=== PATIENT | male | born 1965 | race Caucasian/White ===

== ENCOUNTER 2019-10-10 00:39 | Inpatient (IN) ==
[2019-10-10] MEDS ORDERED: HEPARIN 5,000 UNIT/1 ML VIAL ONE ×2 (00:52→02:07)
[2019-10-10] MEDS ORDERED: ASPIRIN 325 MG TABLET ONE (00:52)
[2019-10-10] MEDS ORDERED: NITROGLYCERIN 2% OINT 1 INCH/GM PACK TOP ONE (00:53)
[2019-10-10] MEDS ORDERED: ONDANSETRON 4 MG/2 ML VIAL IV STA (00:53)
[2019-10-10] MEDS ORDERED: NITROGLYCERIN 2% OINT 1 INCH/GM PACK TOP STA (00:53)
[2019-10-10] MEDS ORDERED: ASPIRIN 325 MG TABLET PO STA (00:53)
[2019-10-10] MEDS ORDERED: MORPHINE 4 MG/1 ML VIAL IV STA (00:53)
[2019-10-10] MEDS ORDERED: EPTIFIBATIDE 20,000 MCG/10 ML VIAL ONE (00:53)
[2019-10-10] MEDS ORDERED: HEPARIN 1,000 UNIT/1 ML VIAL IV STA (00:57)
[2019-10-10] MEDS ORDERED: EPTIFIBATIDE 75 MG/100 ML BOTTLE IV SCH (01:00)
[2019-10-10] MEDS: EPTIFIBATIDE 20,000 MCG/10 ML VIAL IV SCH ×2 (01:05→14:20)
[2019-10-10 01:10] LABS: Basophils # 0.2 10*3/uL (0.0-0.2); Basophils % 1.6 % (0.0-0.8); Eosinophils # 0.3 10*3/uL (0.0-0.87); Eosinophils % 2.9 % (0.00-10.9); Hematocrit 51.9 VOL% (42.0-52.0); Hemoglobin 17.8 GM/DL (14.0-18.0); Immature Granulocytes % 1.4 %; Immature Granulocytes Absolute 0.13 #; Lymphocytes % 31.8 % (21.2-54.2); Mean Corpuscular HGB Conc 34.3 GM/DL (32-36); Mean Corpuscular Volume 97.6 FL (87-102); Mean Platelet Volume 10.6 FL (9.6-12.0); Monocytes % 8.7 % (1.7-12.7); Neutrophils % 53.6 % (38.7-73.9); Platelet Count 206 T/CUMM (130-400); Red Blood Count 5.32 MC/CUMM (3.8-5.5); Red Cell Distribution Width 11.7 % (9.3-17.3); White Blood Count 9.4 T/CUMM (4-12)
[2019-10-10 01:21] LABS: PT Patient Result 10.3 SECS (9.8-11.9); Partial Thromboplastin Time 24.2 SECS (23.9-33.8)
[2019-10-10] MEDS ORDERED: MIDAZOLAM 2 MG/2 ML VIAL ONE (01:26)
[2019-10-10] MEDS ORDERED: LIDOCAINE 1% 20 ML VIAL ONE (01:26)
[2019-10-10] MEDS ORDERED: fentaNYL 100 MCG/2 ML VIAL ONE (01:27)
[2019-10-10] MEDS ORDERED: EPTIFIBATIDE 75 MG/100 ML BOTTLE IV ONE (01:27)
[2019-10-10 01:30] LABS: Alanine Aminotransferase 37 U/L (16-61); Alkaline Phosphatase 125 U/L (45-117); Aspartate Amino Transferase 18 U/L (0-37); Bilirubin,Total < 0.39 MG/DL (0.2-1.0); Blood Urea Nitrogen 24 MG/DL (7-18); Calcium 9.1 MG/DL (8.5-10.1); Estimated Glom Filtration Rate 67 ML/MIN; Glucose 293 MG/DL (74-106); Osmolality,Calculated 284.1 MOS/KG (273-304); Total Protein 7.5 G/DL (6.4-8.3)
[2019-10-10] MEDS ORDERED: METOPROLOL TARTRATE 5 MG/5 ML VIAL IV ONE (01:52)
[2019-10-10] MEDS ORDERED: NIFEdipine 10 MG CAPSULE PO ONE (02:08)
[2019-10-10] MEDS ORDERED: NITROGLYCERIN DRIP 50 MG/250 ML BOTTLE IV ONE (02:16)
[2019-10-10] MEDS ORDERED: TICAGRELOR 90 MG TABLET ONE (02:22)
[2019-10-10] MEDS: SODIUM CHLORIDE 0.9% 1,000 ML IV SCH ×2 (02:56→18:02)
[2019-10-10] MEDS ORDERED: LACTULOSE 20 GM/30 ML UDCUP PO PRN (03:03)
[2019-10-10] MEDS ORDERED: MAGNESIUM SULF RIDER 2 GM in PREMIX 1 EACH IV PRN (03:03)
[2019-10-10] MEDS ORDERED: MAGNESIUM SULF RIDER 4 GM in PREMIX 1 EACH IV PRN (03:03)
[2019-10-10] MEDS ORDERED: fentaNYL 100 MCG/2 ML VIAL IV PRN (03:03)
[2019-10-10] MEDS ORDERED: ONDANSETRON 4 MG/2 ML VIAL IV PRN (03:03)
[2019-10-10] MEDS: carvediloL 6.25 MG TABLET PO SCH ×4 (04:59→21:07)
[2019-10-10] MEDS: PANTOPRAZOLE 40 MG TABLET PO SCH ×2 (04:59→18:12)
[2019-10-10 05:28] LABS: Risk Ratio 9.67; Thyroid Stimulating Hormone 1.48 uIU/ml (0.358-3.74); VLDL CHOLESTEROL 125.8 MG/DL
[2019-10-10 06:34] LABS: CKMB % 8.5 %
[2019-10-10 06:36] LABS: Troponin I 71.7 NG/ML (0.00-0.045)
[2019-10-10] MEDS: TICAGRELOR 90 MG TABLET PO SCH ×2 (08:04→21:06)
[2019-10-10] MEDS: ASPIRIN CHEW 81 MG TABLET PO SCH (08:04)
[2019-10-10] MEDS ORDERED: OXYMETAZOLINE 0.05% NASAL SPRAY 15 ML BOTTLE BOTH NARES PRN (08:50)
[2019-10-10] MEDS ORDERED: LORazepam 0.5 MG TABLET PO PRN (08:50)
[2019-10-10] MEDS ORDERED: GLUCAGON 1 MG VIAL IM PRN ×2 (08:52→14:07)
[2019-10-10] MEDS ORDERED: DEXTROSE 10% 250 ML BAG IV PRN (08:52)
[2019-10-10] MEDS: NICOTINE 21 MG/24 HR PATCH TRANSDERM SCH (09:02)
[2019-10-10] MEDS: FOLIC ACID 1 MG TABLET PO SCH ×2 (09:02→21:07)
[2019-10-10] MEDS: INSULIN REGULAR 100 UNIT/ML SUBCUT SCH ×3 (12:07→21:07)
[2019-10-10 13:13] LABS: Basophils # 0.1 10*3/uL (0.0-0.2); Basophils % 1.2 % (0.0-0.8); Eosinophils # 0.2 10*3/uL (0.0-0.87); Eosinophils % 1.7 % (0.00-10.9); Hematocrit 45.7 VOL% (42.0-52.0); Immature Granulocytes % 1.4 %; Immature Granulocytes Absolute 0.16 #; Lymphocytes # 1.9 10*3/uL (1.4-4.0); Lymphocytes % 16.7 % (21.2-54.2); Mean Corpuscular HGB Conc 33.9 GM/DL (32-36); Mean Corpuscular Volume 98.3 FL (87-102); Mean Platelet Volume 11.1 FL (9.6-12.0); Monocytes % 9.6 % (1.7-12.7); Neutrophils % 69.4 % (38.7-73.9); Platelet Count 187 T/CUMM (130-400); Red Blood Count 4.65 MC/CUMM (3.8-5.5); Red Cell Distribution Width 11.9 % (9.3-17.3); White Blood Count 11.3 T/CUMM (4-12)
[2019-10-10] MEDS ORDERED: hydrALAZINE 20 MG/1 ML VIAL IV PRN (13:13)
[2019-10-10] MEDS ORDERED: diphenhydrAMINE CAP 25 MG CAPSULE PO PRN (13:13)
[2019-10-10 13:22] LABS: Hemoglobin 15.5 GM/DL (14.0-18.0)
[2019-10-10 13:28] LABS: Albumin 3.4 G/DL (3.4-5.0); Bilirubin,Total 0.6 MG/DL (0.2-1.0); Calcium 8.7 MG/DL (8.5-10.1); Osmolality,Calculated 279.2 MOS/KG (273-304); Total Protein 6.5 G/DL (6.4-8.3)
[2019-10-10 13:54] LABS: CKMB % 9.2 %
[2019-10-10 13:55] LABS: Troponin I 64.7 NG/ML (0.00-0.045)
[2019-10-10] MEDS ORDERED: DEXTROSE 50% 25 GM/50 ML VIAL IV PRN (14:07)
[2019-10-10] MEDS: buPROPion 75 MG TABLET PO SCH ×2 (17:07→21:06)
[2019-10-10 19:39] LABS: CKMB % 7.9 %
[2019-10-10 19:51] LABS: Troponin I 42.2 NG/ML (0.00-0.045)
[2019-10-10] MEDS: ROSUVASTATIN 20 MG TABLET PO SCH (21:06)
[2019-10-11] MEDS: carvediloL 6.25 MG TABLET PO SCH (04:06)
[2019-10-11 07:09] LABS: Basophils # 0.1 10*3/uL (0.0-0.2); Basophils % 1.3 % (0.0-0.8); Eosinophils # 0.3 10*3/uL (0.0-0.87); Eosinophils % 2.6 % (0.00-10.9); Hemoglobin 15.2 GM/DL (14.0-18.0); Immature Granulocytes % 0.7 %; Immature Granulocytes Absolute 0.07 #; Lymphocytes % 21.1 % (21.2-54.2); Mean Corpuscular HGB Conc 33.8 GM/DL (32-36); Mean Corpuscular Volume 96.6 FL (87-102); Mean Platelet Volume 10.9 FL (9.6-12.0); Monocytes % 11.3 % (1.7-12.7); Platelet Count 157 T/CUMM (130-400); Red Blood Count 4.66 MC/CUMM (3.8-5.5); Red Cell Distribution Width 11.8 % (9.3-17.3); White Blood Count 9.6 T/CUMM (4-12)
[2019-10-11] MEDS: INSULIN REGULAR 100 UNIT/ML SUBCUT SCH ×4 (08:35→20:26)
[2019-10-11] MEDS: buPROPion 75 MG TABLET PO SCH ×2 (08:36→20:26)
[2019-10-11] MEDS: ASPIRIN CHEW 81 MG TABLET PO SCH (08:36)
[2019-10-11] MEDS: TICAGRELOR 90 MG TABLET PO SCH ×2 (08:36→20:26)
[2019-10-11] MEDS: carvediloL 12.5 MG TABLET PO SCH ×2 (08:37→20:26)
[2019-10-11 08:44] LABS: Calcium 8.6 MG/DL (8.5-10.1); Osmolality,Calculated 282.8 MOS/KG (273-304)
[2019-10-11] MEDS: LOSARTAN 25 MG TABLET PO SCH (08:47)
[2019-10-11] MEDS: NICOTINE 21 MG/24 HR PATCH TRANSDERM SCH (09:13)
[2019-10-11] MEDS: FOLIC ACID 1 MG TABLET PO SCH ×2 (09:13→20:26)
[2019-10-11] MEDS: metFORMIN 500 MG TABLET PO SCH (17:54)
[2019-10-11] MEDS: PANTOPRAZOLE 40 MG TABLET PO SCH (17:54)
[2019-10-11] MEDS: ROSUVASTATIN 20 MG TABLET PO SCH (20:26)
[2019-10-11] MEDS ORDERED: OMEGA 3 ACID ETHYL ESTERS 1 GM CAPSULE PO SCH (21:00)
[2019-10-12 06:42] LABS: Basophils # 0.1 10*3/uL (0.0-0.2); Basophils % 1.3 % (0.0-0.8); Eosinophils # 0.4 10*3/uL (0.0-0.87); Eosinophils % 4.4 % (0.00-10.9); Hematocrit 45.1 VOL% (42.0-52.0); Hemoglobin 15.2 GM/DL (14.0-18.0); Immature Granulocytes % 1.1 %; Lymphocytes # 1.7 10*3/uL (1.4-4.0); Lymphocytes % 18.5 % (21.2-54.2); Mean Corpuscular HGB Conc 33.7 GM/DL (32-36); Mean Corpuscular Volume 98.3 FL (87-102); Mean Platelet Volume 10.8 FL (9.6-12.0); Monocytes % 11.3 % (1.7-12.7); Neutrophils % 63.4 % (38.7-73.9); Platelet Count 162 T/CUMM (130-400); Red Blood Count 4.59 MC/CUMM (3.8-5.5); Red Cell Distribution Width 11.5 % (9.3-17.3); White Blood Count 9.2 T/CUMM (4-12)
[2019-10-12 07:14] LABS: Calcium 8.9 MG/DL (8.5-10.1); Osmolality,Calculated 277.1 MOS/KG (273-304)
[2019-10-12 07:48] VITALS: BP 140/72
[2019-10-12] MEDS: INSULIN REGULAR 100 UNIT/ML SUBCUT SCH (07:50)
[2019-10-12] MEDS: metFORMIN 500 MG TABLET PO SCH (07:57)
[2019-10-12] MEDS: buPROPion 75 MG TABLET PO SCH (08:00)
[2019-10-12] MEDS: TICAGRELOR 90 MG TABLET PO SCH (08:00)
[2019-10-12] MEDS: NICOTINE 21 MG/24 HR PATCH TRANSDERM SCH (08:00)
[2019-10-12] MEDS: ASPIRIN CHEW 81 MG TABLET PO SCH (08:00)
[2019-10-12] MEDS: carvediloL 12.5 MG TABLET PO SCH (08:00)
[2019-10-12] MEDS: FOLIC ACID 1 MG TABLET PO SCH (08:00)
[2019-10-12] MEDS: LOSARTAN 25 MG TABLET PO SCH (08:00)
[2019-10-12] MEDS ORDERED: buPROPion 75 MG TABLET PO SCH (09:00)
== END 2019-10-12 10:17 | disposition home or self-care (01) | DRG 247 ==
LOC: SUPCPDRO → N.ED 00:39 → N.CVR 01:28 → N.EDINP 02:01 → N.CVR 02:39 → N.TELEN 09:32
PROVIDERS: ADMIT Internal Medicine Cardiovascular Disease; ATTEND Internal Medicine Cardiovascular Disease
PROC: CLCCHCL (ICD-10-PCS; 2019-10-10 01:45)

== ENCOUNTER 2020-10-10 14:00 | Inpatient (IN) ==
[2020-10-10] MEDS ORDERED: HEPARIN 5,000 UNIT/1 ML VIAL ONE ×2 (14:19→15:02)
[2020-10-10] MEDS ORDERED: ASPIRIN EC 81 MG TABLET PO ONE (14:19)
[2020-10-10] MEDS ORDERED: TICAGRELOR 90 MG TABLET PO STA (14:20)
[2020-10-10] MEDS ORDERED: ASPIRIN CHEW 81 MG TABLET PO ONE (14:20)
[2020-10-10] MEDS ORDERED: LIDOCAINE 1% 20 ML VIAL ONE (14:30)
[2020-10-10] MEDS ORDERED: fentaNYL 100 MCG/2 ML VIAL ONE (14:34)
[2020-10-10] MEDS ORDERED: MIDAZOLAM 2 MG/2 ML VIAL ONE (14:34)
[2020-10-10 14:35] LABS: Basophils # 0.1 10*3/uL (0.0-0.2); Basophils % 0.6 % (0.0-0.8); Eosinophils # 0.1 10*3/uL (0.0-0.87); Eosinophils % 0.5 % (0.00-10.9); Hematocrit 47.4 VOL% (42.0-52.0); Hemoglobin 16.5 GM/DL (14.0-18.0); Immature Granulocytes % 0.8 %; Immature Granulocytes Absolute 0.15 #; Lymphocytes % 10.1 % (21.2-54.2); Mean Corpuscular HGB Conc 34.8 GM/DL (32-36); Mean Corpuscular Volume 99.2 FL (87-102); Mean Platelet Volume 10.1 FL (9.6-12.0); Monocytes % 12.7 % (1.7-12.7); Neutrophils % 75.3 % (38.7-73.9); Platelet Count 228 T/CUMM (130-400); Red Blood Count 4.78 MC/CUMM (3.8-5.5); Red Cell Distribution Width 11.7 % (9.3-17.3); White Blood Count 19.5 T/CUMM (4-12)
[2020-10-10] MEDS ORDERED: hydrALAZINE 20 MG/1 ML VIAL IV PRN (14:47)
[2020-10-10] MEDS ORDERED: NICOTINE 21 MG/24 HR PATCH TRANSDERM PRN (14:47)
[2020-10-10] MEDS ORDERED: DOCUSATE SODIUM 100 MG CAPSULE PO PRN (14:47)
[2020-10-10] MEDS ORDERED: MAGNESIUM SULF RIDER 2 GM/50 ML PREMIX IV PRN ×2 (14:47→16:25)
[2020-10-10] MEDS ORDERED: MAGNESIUM SULF RIDER 4 GM/100 ML PREMIX IV PRN ×2 (14:47→16:25)
[2020-10-10] MEDS ORDERED: ASPIRIN CHEW 81 MG TABLET PO STA (14:47)
[2020-10-10] MEDS ORDERED: POTASSIUM CHLORIDE 20 MEQ TABLET PO PRN (14:47)
[2020-10-10] MEDS ORDERED: HEPARIN 1,000 UNIT/1 ML VIAL IV STA (14:47)
[2020-10-10] MEDS ORDERED: ZALEPLON 5 MG CAPSULE PO PRN (14:47)
[2020-10-10] MEDS ORDERED: diphenhydrAMINE CAP 25 MG CAPSULE PO PRN (14:47)
[2020-10-10] MEDS ORDERED: PROMETHAZINE 25 MG TABLET PO PRN (14:47)
[2020-10-10] MEDS ORDERED: guaiFENesin/DM ER 600-30 MG TABLET PO PRN (14:47)
[2020-10-10] MEDS ORDERED: ONDANSETRON 4 MG/2 ML VIAL IV PRN (14:47)
[2020-10-10] MEDS ORDERED: ACETAMINOPHEN 325 MG TABLET PO PRN (14:47)
[2020-10-10] MEDS ORDERED: ALUMINUM/MAGNES/SIMETH MAX STR 30 ML UDCUP PO PRN (14:47)
[2020-10-10] MEDS ORDERED: MORPHINE 4 MG/1 ML VIAL IV PRN (14:47)
[2020-10-10 14:53] LABS: Albumin 3.8 G/DL (3.4-5.0); Calcium 9.4 MG/DL (8.5-10.1); Osmolality,Calculated 275.1 MOS/KG (273-304); Potassium 4.1 MMOL/L (3.5-5.1); Total Protein 7.1 G/DL (6.4-8.2)
[2020-10-10] MEDS ORDERED: chlordiazePOXIDE 25 MG CAPSULE PO PRN (14:54)
[2020-10-10] MEDS ORDERED: SODIUM CHLORIDE 0.9% 1,000 ML IV SCH (15:00)
[2020-10-10] MEDS ORDERED: TIROFIBAN 5,000 MCG/100 ML PREMIX IV ONE (15:04)
[2020-10-10] MEDS ORDERED: NITROGLYCERIN DRIP 50 MG/250 ML BOTTLE IV ONE (15:31)
[2020-10-10] MEDS ORDERED: TICAGRELOR 90 MG TABLET ONE (15:37)
[2020-10-10] MEDS: TIROFIBAN 5,000 MCG/100 ML PREMIX IV SCH ×2 (16:07→21:51)
[2020-10-10 16:20] LABS: Folate 10.4 NG/ML (5.38-24.0)
[2020-10-10] MEDS ORDERED: KETOROLAC 30 MG/1 ML VIAL IV ONE (16:35)
[2020-10-10] MEDS: PANTOPRAZOLE 40 MG TABLET PO SCH (17:03)
[2020-10-10 18:45] LABS: CKMB % 4.8 %; Risk Ratio 3.42
[2020-10-10 18:48] LABS: Troponin I 32.2 NG/ML (0.00-0.045)
[2020-10-10] MEDS: INSULIN LISPRO 100 UNIT/ML SUBCUT SCH ×2 (19:25→20:29)
[2020-10-10 20:22] LABS: Barbiturates Screen,Urine Negative (Negative); Benzodiazepines Screen,Urine Positive (Negative); Cannabinoid Screen,Urine Negative (Negative); Opiate Screen,Urine Negative (Negative); Phencyclidine Screen,Urine Negative (Negative)
[2020-10-10] MEDS: OMEGA 3 ACID ETHYL ESTERS 1 GM CAPSULE PO SCH (20:28)
[2020-10-10] MEDS: carvediloL 6.25 MG TABLET PO SCH (20:29)
[2020-10-10] MEDS: ROSUVASTATIN 20 MG TABLET PO SCH (20:29)
[2020-10-10] MEDS: TICAGRELOR 90 MG TABLET PO SCH (20:35)
[2020-10-11 01:38] LABS: Basophils # 0.1 10*3/uL (0.0-0.2); Basophils % 0.8 % (0.0-0.8); Eosinophils # 0.1 10*3/uL (0.0-0.87); Eosinophils % 0.4 % (0.00-10.9); Hemoglobin 14.5 GM/DL (14.0-18.0); Immature Granulocytes % 0.6 %; Immature Granulocytes Absolute 0.09 #; Lymphocytes % 14.2 % (21.2-54.2); Mean Corpuscular HGB Conc 34.5 GM/DL (32-36); Mean Corpuscular Volume 100.2 FL (87-102); Mean Platelet Volume 10.5 FL (9.6-12.0); Monocytes % 14.5 % (1.7-12.7); Neutrophils % 69.5 % (38.7-73.9); Platelet Count 188 T/CUMM (130-400); Red Blood Count 4.19 MC/CUMM (3.8-5.5); Red Cell Distribution Width 11.7 % (9.3-17.3); White Blood Count 13.9 T/CUMM (4-12)
[2020-10-11 01:51] LABS: Albumin 2.8 G/DL (3.4-5.0); CKMB % 2.9 %; Calcium 8.6 MG/DL (8.5-10.1); Osmolality,Calculated 272.1 MOS/KG (273-304); Potassium 3.7 MMOL/L (3.5-5.1); Total Protein 6.2 G/DL (6.4-8.2)
[2020-10-11 01:53] LABS: Troponin I 24.3 NG/ML (0.00-0.045)
[2020-10-11] MEDS: TIROFIBAN 5,000 MCG/100 ML PREMIX IV SCH (04:34)
[2020-10-11] MEDS: INSULIN LISPRO 100 UNIT/ML SUBCUT SCH ×4 (08:15→21:56)
[2020-10-11] MEDS: carvediloL 6.25 MG TABLET PO SCH (08:16)
[2020-10-11] MEDS: ASPIRIN CHEW 81 MG TABLET PO SCH (08:16)
[2020-10-11] MEDS: FOLIC ACID 1 MG TABLET PO SCH (08:16)
[2020-10-11] MEDS: THIAMINE 100 MG TABLET PO SCH (08:16)
[2020-10-11] MEDS: TICAGRELOR 90 MG TABLET PO SCH ×2 (08:16→21:48)
[2020-10-11] MEDS: PANTOPRAZOLE 40 MG TABLET PO SCH (08:20)
[2020-10-11] MEDS ORDERED: PANTOPRAZOLE 40 MG TABLET PO SCH (09:00)
[2020-10-11 09:31] LABS: CKMB % 2.6 %; Troponin I 14.6 NG/ML (0.00-0.045)
[2020-10-11] MEDS ORDERED: carvediloL 6.25 MG TABLET PO ONE (11:44)
[2020-10-11] MEDS: GABAPENTIN 100 MG CAPSULE PO SCH ×2 (15:21→21:48)
[2020-10-11] MEDS: ROSUVASTATIN 20 MG TABLET PO SCH (21:48)
[2020-10-11] MEDS: carvediloL 12.5 MG TABLET PO SCH (21:48)
[2020-10-11] MEDS: OMEGA 3 ACID ETHYL ESTERS 1 GM CAPSULE PO SCH (21:48)
[2020-10-11] MEDS: buPROPion 75 MG TABLET PO SCH (21:57)
[2020-10-12 06:16] LABS: Albumin 2.5 G/DL (3.4-5.0); Bilirubin,Total 0.8 MG/DL (0.2-1.0); Calcium 8.8 MG/DL (8.5-10.1); Potassium 3.8 MMOL/L (3.5-5.1); Total Protein 6.5 G/DL (6.4-8.2)
[2020-10-12] MEDS: GABAPENTIN 100 MG CAPSULE PO SCH (08:10)
[2020-10-12] MEDS: carvediloL 12.5 MG TABLET PO SCH (08:10)
[2020-10-12] MEDS: ASPIRIN CHEW 81 MG TABLET PO SCH (08:10)
[2020-10-12] MEDS: THIAMINE 100 MG TABLET PO SCH (08:10)
[2020-10-12] MEDS: buPROPion 75 MG TABLET PO SCH (08:10)
[2020-10-12] MEDS: TICAGRELOR 90 MG TABLET PO SCH (08:11)
[2020-10-12] MEDS: FOLIC ACID 1 MG TABLET PO SCH (08:11)
[2020-10-12] MEDS: PANTOPRAZOLE 40 MG TABLET PO SCH (08:11)
[2020-10-12] MEDS ORDERED: carvediloL 12.5 MG TABLET PO ONE ×2 (08:23→08:32)
[2020-10-12 08:25] VITALS: BP 107/74
[2020-10-12] MEDS: INSULIN LISPRO 100 UNIT/ML SUBCUT SCH (08:28)
[2020-10-12] MEDS ORDERED: ASCORBIC ACID 500 MG TABLET PO SCH (09:00)
[2020-10-12] MEDS ORDERED: carvediloL 25 MG TABLET PO SCH (17:00)
[2020-10-13] MEDS ORDERED: carvediloL 12.5 MG TABLET PO SCH (09:00)
[2020-10-13] MEDS ORDERED: carvediloL 25 MG TABLET PO SCH (09:00)
== END 2020-10-12 10:25 | disposition home or self-care (01) | DRG 247 ==
LOC: N.ED 14:00 → N.EDINP 14:34 → N.ICU 17:36
PROVIDERS: ADMIT Internal Medicine Cardiovascular Disease; ATTEND Internal Medicine Cardiovascular Disease
PROC: CLCCHCL (ICD-10-PCS; 2020-10-10 15:15)

== ENCOUNTER 2021-02-18 10:50 | Inpatient (IN) ==
[2021-02-20] MEDS ORDERED: GLUCAGON 1 MG VIAL IM PRN ×2 (09:29)
[2021-02-20] MEDS ORDERED: DEXTROSE 50% 25 GM/50 ML VIAL IV PRN ×2 (09:29)
[2021-02-20] MEDS ORDERED: SODIUM CHLORIDE 0.9% 1,000 ML IV SCH (09:30)
[2021-02-20 10:10] LABS: Basophils # 0.1 10*3/uL (0.0-0.2); Basophils % 1.2 % (0.0-0.8); Eosinophils # 0.4 10*3/uL (0.0-0.87); Eosinophils % 4.2 % (0.00-10.9); Hematocrit 47.3 VOL% (42.0-52.0); Hemoglobin 16.2 GM/DL (14.0-18.0); Immature Granulocytes % 0.6 %; Immature Granulocytes Absolute 0.05 #; Lymphocytes # 2.3 10*3/uL (1.4-4.0); Lymphocytes % 26.7 % (21.2-54.2); Mean Corpuscular HGB Conc 34.2 GM/DL (32-36); Mean Corpuscular Volume 97.7 FL (87-102); Mean Platelet Volume 10.5 FL (9.6-12.0); Monocytes % 9.4 % (1.7-12.7); Neutrophils % 57.9 % (38.7-73.9); Platelet Count 171 T/CUMM (130-400); Red Blood Count 4.84 MC/CUMM (3.8-5.5); Red Cell Distribution Width 12.8 % (9.3-17.3); White Blood Count 8.6 T/CUMM (4-12)
[2021-02-20] MEDS ORDERED: NITROGLYCERIN SL 0.4 MG TABLET SL PRN (10:22)
[2021-02-20 10:23] LABS: ABG Base Excess 0.6 MMOL/L (-2.5-2.5); ABG HCO3 23.3 MMOL/L (20-26); ABG PCO2 32.8 MM HG (35-48); ABG PO2 80.2 MM HG (80-95); ABG TCO2 24.3 MMOL/L (23-27)
[2021-02-20] MEDS ORDERED: CLORAZEPATE 3.75 MG TABLET PO PRN (10:24)
[2021-02-20 10:31] LABS: Alanine Aminotransferase 17 U/L (16-61); Albumin 3.7 G/DL (3.4-5.0); Alkaline Phosphatase 96 U/L (45-117); Aspartate Amino Transferase 20 U/L (0-37); Bilirubin,Total < 0.39 MG/DL (0.20-1.00); Blood Urea Nitrogen 22 MG/DL (7-18); Calcium 8.9 MG/DL (8.5-10.1); Carbon Dioxide 24 MMOL/L (21-32); Estimated Glom Filtration Rate 86 ML/MIN; Glucose 201 MG/DL (74-106); Potassium 3.5 MMOL/L (3.5-5.1); Sodium 136 MMOL/L (136-145); Total Protein 7.3 G/DL (6.4-8.2)
[2021-02-20] MEDS: CHLORHEXIDINE 0.12% ORAL RINSE 60 ML BOTTLE SWISH/SPIT SCH ×2 (12:00→20:33)
[2021-02-20] MEDS: ALPRAZolam 0.25 MG TABLET PO PRN ×2 (13:24→16:11)
[2021-02-20] MEDS: INSULIN REGULAR 100 UNIT/ML SUBCUT SCH ×3 (13:30→20:26)
[2021-02-20] MEDS ORDERED: ASCORBIC ACID 500 MG TABLET PO ONE (13:43)
[2021-02-20] MEDS ORDERED: DIAZEPAM 5 MG TABLET PO ONE (14:12)
[2021-02-20] MEDS ORDERED: PANTOPRAZOLE 40 MG TABLET PO ONE (14:12)
[2021-02-20] MEDS: CHLORHEXIDINE 4% SOLN 118 ML BOTTLE TOP SCH ×2 (15:00→23:49)
[2021-02-20] MEDS: chlordiazePOXIDE 10 MG CAPSULE PO SCH ×2 (15:27→20:26)
[2021-02-20] MEDS: GABAPENTIN 100 MG CAPSULE PO SCH ×2 (15:27→20:26)
[2021-02-20] MEDS: HYDROmorphone 2 MG/1 ML VIAL IV PRN ×2 (16:39→21:26)
[2021-02-20] MEDS: ASCORBIC ACID 500 MG TABLET PO SCH (20:26)
[2021-02-20] MEDS: THIAMINE 100 MG TABLET PO SCH (20:26)
[2021-02-20] MEDS ORDERED: FOLIC ACID 1 MG TABLET PO SCH (21:00)
[2021-02-21] MEDS: CHLORHEXIDINE 4% SOLN 118 ML BOTTLE TOP SCH (04:43)
[2021-02-21] MEDS ORDERED: SODIUM CHLORIDE 0.9% 1,000 ML IV SCH (05:00)
[2021-02-21] MEDS ORDERED: VANCOMYCIN INJ 1,000 MG in SODIUM CHLORIDE 0.9% 250 ML IV ONE (05:00)
[2021-02-21] MEDS ORDERED: PANTOPRAZOLE 40 MG TABLET PO ONE (05:00)
[2021-02-21] MEDS ORDERED: DIAZEPAM 5 MG TABLET PO ONE (05:00)
[2021-02-21] MEDS ORDERED: VANCOMYCIN 500 MG VIAL ONE (05:30)
[2021-02-21] MEDS ORDERED: VANCOMYCIN 1,000 MG VIAL ONE (05:30)
[2021-02-21] MEDS ORDERED: PAPAVERINE 60 MG/2 ML VIAL ONE (05:30)
[2021-02-21] MEDS ORDERED: CALCIUM CHLORIDE 1,000 MG/10 ML VIAL IV ONE ×2 (05:47→10:44)
[2021-02-21] MEDS ORDERED: LACTATED RINGERS 1,000 ML IV ONE (05:47)
[2021-02-21] MEDS ORDERED: VECURONIUM 10 MG VIAL IV ONE (05:47)
[2021-02-21] MEDS ORDERED: SODIUM CHLORIDE 0.9% 250 ML IV ONE (05:47)
[2021-02-21] MEDS ORDERED: MIDAZOLAM 10 MG/2 ML VIAL ONE ×4 (05:47→05:48)
[2021-02-21] MEDS ORDERED: ETOMIDATE 40 MG/20 ML VIAL IV ONE (05:47)
[2021-02-21] MEDS ORDERED: SODIUM CHLORIDE 0.9% 100 ML IV ONE (05:47)
[2021-02-21] MEDS ORDERED: SEVOFLURANE 1 UNIT/15 MINUTE INH ONE (05:47)
[2021-02-21] MEDS ORDERED: SUFentanil 250 MCG/5 ML AMP ONE ×4 (05:48)
[2021-02-21] MEDS ORDERED: AMINOCAPROIC ACID 5,000 MG/20 ML VIAL ONE (06:04)
[2021-02-21] MEDS ORDERED: PHENYLEPHRINE DRIP 20 MG/250 ML PREMIX IV ONE (06:04)
[2021-02-21] MEDS ORDERED: NITROGLYCERIN DRIP 50 MG/250 ML BOTTLE IV ONE (06:04)
[2021-02-21] MEDS ORDERED: HEPARIN/NACL 0.9% 2 UNITS/ML 1,000 UNIT/500 ML BAG IV ONE (06:04)
[2021-02-21 07:33] LABS: ABG Base Excess 0.9 MMOL/L (-2.5-2.5); ABG HCO3 25.2 MMOL/L (20-26); ABG Oxygen Saturation 98.5 % (95-100); ABG PCO2 39.5 MM HG (35-48); ABG PH 7.423 (7.35-7.45); ABG TCO2 26.4 MMOL/L (23-27); Glucose Heart Surgery 172 MG/DL (74-106); Hemoglobin Heart Surgery 14.9 G/DL (14.0-18.0); Ionized Calcium Arterial 1.14 MMOL/L (1.21-1.46); PCO2 Patient Temp Arterial 39.5 MMHG; PH Patient Temp Arterial 7.423; Patient Temperature 37 CELCIUS; Potassium Heart/CVR 3.4 MMOL/L (3.5-5.1); Sodium Heart/CVR 138 MMOL/L (135-145)
[2021-02-21 08:07] LABS: Bacteria,Urine Occasional /HPF (Few); Bilirubin,Urine Negative (Negative); Blood, Urine Negative (Negative); Glucose,Urine (UA) >=500 mg/dL (Negative); Ketones,Urine 5 mg/dL (Negative); Mucus,Urine Occasional /LPF (Occasional); Nitrite,Urine Negative (Negative); Protein,Urine Negative; RBC,Urine <1 /HPF (0-4); Urine Appearance CLEAR (Clear); Urine Color Yellow (Yellow); Urine Specific Gravity 1.025 (1.001-1.035); Urine Urobilinogen < 2.0 EU/DL (0.2-1.0)
[2021-02-21] MEDS ORDERED: MINERAL OIL/PETROLATUM OPH OINT 3.5 GM TUBE ONE (08:37)
[2021-02-21] MEDS ORDERED: MULTIVITAMIN (CENTRUM) TABLET PO SCH (09:00)
[2021-02-21 09:12] LABS: Hematocrit Heart Surgery 34.3 PERCENT (42-52); Hemoglobin Heart Surgery 11.1 G/DL (14.0-18.0); PCO2 Patient Temp Venous 36.7 MM HG; PH Patient Temp Venous 7.452; PO2 Patient Temp Venous 42.8 MM HG; Potassium Heart/CVR 3.7 MMOL/L (3.5-5.1); VBG Base Excess 1.9 MEQ/L (0-4); VBG HCO3 25.8 MEQ/L (24-28); VBG Oxygen Saturation 83.2 %; VBG PCO2 40.5 MMHG (41-51); VBG PH 7.423; VBG PO2 49.2 MMHG (17-40); VBG Total CO2 23.7 MMOL/L
[2021-02-21] MEDS ORDERED: POTASSIUM CHLORIDE RIDER 20 MEQ/100 ML PREMIX IV ONE (09:16)
[2021-02-21] MEDS ORDERED: SODIUM BICARBONATE 50 MEQ/50 ML VIAL IV ONE ×2 (09:16→11:01)
[2021-02-21] MEDS ORDERED: EPINEPHrine 1 MG/10 ML SYRINGE ONE (09:17)
[2021-02-21] MEDS ORDERED: CALCIUM CHLORIDE 1,000 MG/10 ML SYRINGE IV ONE (09:17)
[2021-02-21 09:42] LABS: Hematocrit Heart Surgery 37.5 PERCENT (42-52); Hemoglobin Heart Surgery 12.2 G/DL (14.0-18.0); PH Patient Temp Venous 7.487; PO2 Patient Temp Venous 39.1 MM HG; Potassium Heart/CVR 3.8 MMOL/L (3.5-5.1); VBG Base Excess 2.1 MEQ/L (0-4); VBG Oxygen Saturation 84.1 %; VBG PCO2 38.2 MMHG (41-51); VBG PH 7.442; VBG PO2 48.1 MMHG (17-40); VBG Total CO2 23.1 MMOL/L
[2021-02-21 10:16] LABS: Hematocrit Heart Surgery 37.5 PERCENT (42-52); Hemoglobin Heart Surgery 12.2 G/DL (14.0-18.0); PCO2 Patient Temp Venous 35.5 MM HG; PH Patient Temp Venous 7.456; Potassium Heart/CVR 4.6 MMOL/L (3.5-5.1); VBG Base Excess 1.4 MEQ/L (0-4); VBG HCO3 25.3 MEQ/L (24-28); VBG Oxygen Saturation 79.8 %; VBG PCO2 39.1 MMHG (41-51); VBG PH 7.426; VBG PO2 44.8 MMHG (17-40); VBG Total CO2 22.8 MMOL/L
[2021-02-21] MEDS ORDERED: THROMBIN TOPICAL (RECOMBINANT) 5,000 UNIT VIAL TOP ONE (10:37)
[2021-02-21] MEDS: INSULIN REGULAR 100 UNIT/ML SUBCUT SCH ×2 (10:49→14:52)
[2021-02-21] MEDS: THIAMINE 100 MG TABLET PO SCH (10:50)
[2021-02-21] MEDS: CHLORHEXIDINE 0.12% ORAL RINSE 60 ML BOTTLE SWISH/SPIT SCH ×2 (10:50→20:59)
[2021-02-21] MEDS: ASCORBIC ACID 500 MG TABLET PO SCH (10:50)
[2021-02-21] MEDS: chlordiazePOXIDE 10 MG CAPSULE PO SCH (10:50)
[2021-02-21] MEDS: GABAPENTIN 100 MG CAPSULE PO SCH (10:50)
[2021-02-21] MEDS ORDERED: MAGNESIUM SULFATE 5 GM/10 ML VIAL IV ONE (11:00)
[2021-02-21] MEDS ORDERED: LIDOCAINE 2% 5 ML VIAL ONE ×2 (11:00→11:15)
[2021-02-21] MEDS ORDERED: PROTAMINE SULFATE 250 MG/25 ML VIAL IV ONE (11:00)
[2021-02-21] MEDS ORDERED: ALBUMIN 25% 25 GM/100 ML VIAL IV ONE (11:00)
[2021-02-21] MEDS ORDERED: methylPREDNISolone SOD SUC 1,000 MG/8 ML VIAL ONE (11:00)
[2021-02-21] MEDS ORDERED: HEPARIN 10,000 UNIT/10 ML VIAL ONE (11:00)
[2021-02-21] MEDS ORDERED: DEXTROSE 5% KCL 20 MEQ 20 MEQ/1,000 ML BAG IV ONE (11:00)
[2021-02-21] MEDS ORDERED: MANNITOL 100 GM/500 ML BAG IV ONE (11:00)
[2021-02-21] MEDS ORDERED: PROTAMINE SULFATE 50 MG/5 ML VIAL IV ONE ×3 (11:01→12:15)
[2021-02-21] MEDS ORDERED: FUROSEMIDE 20 MG/2 ML VIAL ONE (11:01)
[2021-02-21 11:06] LABS: ABG Base Excess 0.4 MMOL/L (-2.5-2.5); ABG HCO3 24.8 MMOL/L (20-26); ABG Oxygen Saturation 98.8 % (95-100); ABG PCO2 35.8 MM HG (35-48); ABG PH 7.437 (7.35-7.45); ABG TCO2 21.2 MMOL/L (23-27); Glucose Heart Surgery 270 MG/DL (74-106); Hematocrit Heart Surgery 37.8 PERCENT (42-52); Hemoglobin Heart Surgery 12.3 G/DL (14.0-18.0); Ionized Calcium Arterial 1.47 MMOL/L (1.21-1.46); PCO2 Patient Temp Arterial 35.8 MMHG; PH Patient Temp Arterial 7.437; Patient Temperature 37 CELCIUS; Potassium Heart/CVR 3.8 MMOL/L (3.5-5.1); Sodium Heart/CVR 141 MMOL/L (135-145)
[2021-02-21] MEDS ORDERED: AMIODARONE 150 MG/3 ML VIAL ONE (11:09)
[2021-02-21] MEDS ORDERED: PHENYLEPHRINE DRIP 40 MG/250 ML PREMIX IV ONE (11:48)
[2021-02-21] MEDS ORDERED: INSULIN REGULAR DRIP 100 ML IV SCH (12:24)
[2021-02-21] MEDS ORDERED: MAGNESIUM SULF RIDER 2 GM/50 ML PREMIX IV PRN (12:24)
[2021-02-21] MEDS ORDERED: VECURONIUM 10 MG VIAL IV PRN ×2 (12:24)
[2021-02-21] MEDS ORDERED: POTASSIUM CHLORIDE RIDER 10 MEQ/100 ML PREMIX IV PRN (12:24)
[2021-02-21] MEDS ORDERED: CHLORHEXIDINE 4% SOLN 118 ML BOTTLE TOP PRN (12:24)
[2021-02-21] MEDS ORDERED: ONDANSETRON 4 MG/2 ML VIAL IV PRN (12:24)
[2021-02-21] MEDS ORDERED: INSULIN REGULAR 100 UNIT/ML IV ONE (12:24)
[2021-02-21] MEDS ORDERED: ACETAMINOPHEN 650 MG SUPP RECTAL PRN (12:24)
[2021-02-21] MEDS ORDERED: SODIUM CHLORIDE 0.45% 1,000 ML IV SCH ×2 (12:24)
[2021-02-21] MEDS ORDERED: INSULIN REGULAR 100 UNIT/ML IV PRN (12:24)
[2021-02-21] MEDS ORDERED: MIDAZOLAM 2 MG/2 ML VIAL IV PRN (12:24)
[2021-02-21] MEDS ORDERED: DEXTROSE 50% 25 GM/50 ML VIAL IV PRN ×2 (12:24)
[2021-02-21] MEDS ORDERED: MIDAZOLAM 10 MG/2 ML VIAL IV PRN (12:24)
[2021-02-21] MEDS ORDERED: CALCIUM CHLORIDE 1,000 MG/10 ML SYRINGE IV PRN (12:24)
[2021-02-21] MEDS ORDERED: MAGNESIUM SULF RIDER 4 GM/100 ML PREMIX IV PRN (12:24)
[2021-02-21] MEDS ORDERED: NITROPRUSSIDE 100 MG in DEXTROSE 5% 250 ML IV PRN (12:24)
[2021-02-21] MEDS ORDERED: MORPHINE 10 MG/1 ML VIAL IV PRN (12:24)
[2021-02-21 12:27] LABS: ABG Base Excess -1.8 MMOL/L (-2.5-2.5); ABG HCO3 22.9 MMOL/L (20-26); ABG Oxygen Saturation 97.7 % (95-100); ABG PCO2 35.9 MM HG (35-48); ABG PH 7.403 (7.35-7.45); ABG TCO2 19.6 MMOL/L (23-27); Glucose Heart Surgery 252 MG/DL (74-106); Hematocrit Heart Surgery 39.5 PERCENT (42-52); Hemoglobin Heart Surgery 12.8 G/DL (14.0-18.0); Potassium Heart/CVR 3.9 MMOL/L (3.5-5.1)
[2021-02-21 12:29] LABS: Basophils # 0.1 10*3/uL (0.0-0.2); Basophils % 0.6 % (0.0-0.8); Eosinophils # 0.2 10*3/uL (0.0-0.87); Eosinophils % 1.6 % (0.00-10.9); Immature Granulocytes % 0.9 %; Lymphocytes # 1.7 10*3/uL (1.4-4.0); Lymphocytes % 15.6 % (21.2-54.2); Mean Corpuscular HGB Conc 34.1 GM/DL (32-36); Mean Corpuscular Volume 98.4 FL (87-102); Mean Platelet Volume 10.6 FL (9.6-12.0); Monocytes % 7.8 % (1.7-12.7); Neutrophils % 73.5 % (38.7-73.9); Platelet Count 157 T/CUMM (130-400); Red Cell Distribution Width 12.9 % (9.3-17.3); White Blood Count 10.8 T/CUMM (4-12)
[2021-02-21 12:31] LABS: Hemoglobin 12.6 GM/DL (14.0-18.0); Red Blood Count 3.76 MC/CUMM (3.8-5.5)
[2021-02-21 12:53] LABS: Albumin 3.6 G/DL (3.4-5.0); Bilirubin,Total 1.1 MG/DL (0.20-1.00); Calcium 9.7 MG/DL (8.5-10.1); Osmolality,Calculated 290.1 MOS/KG (273-304); Potassium 3.6 MMOL/L (3.5-5.1); Total Protein 6.4 G/DL (6.4-8.2)
[2021-02-21 12:54] LABS: INR 1.2; PT Patient Result 13.5 SECS (10.5-12.0); Partial Thromboplastin Time 26.8 SECS (23.9-33.8)
[2021-02-21 13:01] LABS: Band Neutrophils 10 % (0-10); Eosinophils 1 % (0-10); Lymphocytes 14 % (20-55); Segmented Neutrophils 71 % (50-85); Total Cells Counted 100
[2021-02-21 13:02] LABS: Anisocytosis Slight; Macrocytosis Slight; Platelet Estimate Adequate
[2021-02-21 13:06] LABS: CKMB % 6.1 %
[2021-02-21 13:09] LABS: ABG Base Excess 1.4 MMOL/L (-2.5-2.5); ABG HCO3 24.7 MMOL/L (20-26); ABG PH 7.466 (7.35-7.45); ABG PO2 107.9 MM HG (80-95); ABG TCO2 25.7 MMOL/L (23-27)
[2021-02-21 13:11] LABS: High Sensitive Troponin I* 29405.6 ng/L (0-78)
[2021-02-21] MEDS: POTASSIUM CHLORIDE RIDER 20 MEQ/100 ML PREMIX IV PRN ×3 (13:19→20:58)
[2021-02-21] MEDS: LACTATED RINGERS 250 ML IV PRN ×4 (13:20→21:05)
[2021-02-21] MEDS: PHENYLEPHRINE DRIP 40 MG/250 ML PREMIX IV PRN (13:20)
[2021-02-21] MEDS: methylPREDNISolone SOD SUC 40 MG/1 ML VIAL IV SCH ×2 (13:41→20:58)
[2021-02-21 15:11] LABS: ABG Base Excess -0.1 MMOL/L (-2.5-2.5); ABG HCO3 24.4 MMOL/L (20-26); ABG Oxygen Saturation 98.1 % (95-100); ABG PCO2 36.3 MM HG (35-48); ABG PH 7.426 (7.35-7.45); ABG TCO2 20.9 MMOL/L (23-27); Glucose Heart Surgery 188 MG/DL (74-106); Hematocrit Heart Surgery 39.3 PERCENT (42-52); Hemoglobin Heart Surgery 12.8 G/DL (14.0-18.0); Potassium Heart/CVR 3.7 MMOL/L (3.5-5.1)
[2021-02-21] MEDS: KETOROLAC 30 MG/1 ML VIAL IV SCH ×2 (15:44→21:04)
[2021-02-21] MEDS: ALBUMIN 5% 12.5 GM/250 ML VIAL IV PRN ×2 (17:18→21:20)
[2021-02-21 19:34] LABS: ABG HCO3 26.2 MMOL/L (20-26); ABG Oxygen Saturation 98.1 % (95-100); ABG PCO2 38.7 MM HG (35-48); ABG PH 7.437 (7.35-7.45); ABG TCO2 22.8 MMOL/L (23-27); Glucose Heart Surgery 123 MG/DL (74-106); Hematocrit Heart Surgery 39.5 PERCENT (42-52); Hemoglobin Heart Surgery 12.9 G/DL (14.0-18.0); Potassium Heart/CVR 3.4 MMOL/L (3.5-5.1)
[2021-02-21] MEDS ORDERED: FUROSEMIDE 40 MG/4 ML VIAL IV ONE (20:15)
[2021-02-21 20:21] LABS: CKMB % 5.6 %
[2021-02-21 20:27] LABS: High Sensitive Troponin I* 43465.4 ng/L (0-78)
[2021-02-21 21:11] LABS: ABG Base Excess 0.5 MMOL/L (-2.5-2.5); ABG HCO3 24.8 MMOL/L (20-26); ABG Oxygen Saturation 97.7 % (95-100); ABG PCO2 44.3 MM HG (35-48); ABG PH 7.376 (7.35-7.45); ABG TCO2 22.9 MMOL/L (23-27); Glucose Heart Surgery 140 MG/DL (74-106); Hematocrit Heart Surgery 38.4 PERCENT (42-52); Hemoglobin Heart Surgery 12.5 G/DL (14.0-18.0); Potassium Heart/CVR 3.8 MMOL/L (3.5-5.1)
[2021-02-21 22:16] LABS: ABG Base Excess 0.1 MMOL/L (-2.5-2.5); ABG HCO3 24.5 MMOL/L (20-26); ABG Oxygen Saturation 95.9 % (95-100); ABG PCO2 51.4 MM HG (35-48); ABG PH 7.327 (7.35-7.45); ABG TCO2 24.1 MMOL/L (23-27); Glucose Heart Surgery 150 MG/DL (74-106); Hematocrit Heart Surgery 36.6 PERCENT (42-52); Hemoglobin Heart Surgery 11.9 G/DL (14.0-18.0); Potassium Heart/CVR 3.8 MMOL/L (3.5-5.1)
[2021-02-21] MEDS ORDERED: VANCOMYCIN INJ 1,000 MG in SODIUM CHLORIDE 0.9% 250 ML IV SCH (23:30)
[2021-02-22 00:09] LABS: ABG Base Excess 2.4 MMOL/L (-2.5-2.5); ABG Oxygen Saturation 95.6 % (95-100); ABG PCO2 47.4 MM HG (35-48); ABG PH 7.389 (7.35-7.45); ABG PO2 87.6 MM HG (80-95); ABG TCO2 29.4 MMOL/L (23-27); Glucose Heart Surgery 132 MG/DL (74-106); Hemoglobin Heart Surgery 11.6 G/DL (14.0-18.0); Potassium Heart/CVR 3.7 MMOL/L (3.5-5.1)
[2021-02-22] MEDS: POTASSIUM CHLORIDE RIDER 20 MEQ/100 ML PREMIX IV PRN (00:18)
[2021-02-22 02:08] LABS: ABG Base Excess -0.6 MMOL/L (-2.5-2.5); ABG HCO3 23.9 MMOL/L (20-26); ABG Oxygen Saturation 95.6 % (95-100); ABG PCO2 44.2 MM HG (35-48); ABG PH 7.362 (7.35-7.45); ABG PO2 84.9 MM HG (80-95); ABG TCO2 22.2 MMOL/L (23-27); Glucose Heart Surgery 127 MG/DL (74-106); Hematocrit Heart Surgery 37.6 PERCENT (42-52); Hemoglobin Heart Surgery 12.2 G/DL (14.0-18.0); Potassium Heart/CVR 4.4 MMOL/L (3.5-5.1)
[2021-02-22] MEDS: PHENYLEPHRINE DRIP 40 MG/250 ML PREMIX IV PRN (02:36)
[2021-02-22 02:48] LABS: ABG Base Excess -0.1 MMOL/L (-2.5-2.5); ABG HCO3 24.3 MMOL/L (20-26); ABG Oxygen Saturation 93.8 % (95-100); ABG PCO2 51.9 MM HG (35-48); ABG PH 7.322 (7.35-7.45); ABG PO2 77.9 MM HG (80-95); Glucose Heart Surgery 129 MG/DL (74-106); Hematocrit Heart Surgery 37.9 PERCENT (42-52); Hemoglobin Heart Surgery 12.3 G/DL (14.0-18.0); Potassium Heart/CVR 4.3 MMOL/L (3.5-5.1)
[2021-02-22] MEDS: KETOROLAC 30 MG/1 ML VIAL IV SCH ×4 (03:22→16:30)
[2021-02-22 04:00] LABS: ABG Base Excess -0.9 MMOL/L (-2.5-2.5); ABG HCO3 23.6 MMOL/L (20-26); ABG Oxygen Saturation 95.4 % (95-100); ABG PCO2 48.4 MM HG (35-48); ABG PH 7.331 (7.35-7.45); ABG TCO2 22.8 MMOL/L (23-27); Glucose Heart Surgery 130 MG/DL (74-106); Hematocrit Heart Surgery 37.3 PERCENT (42-52); Hemoglobin Heart Surgery 12.1 G/DL (14.0-18.0); Potassium Heart/CVR 4.2 MMOL/L (3.5-5.1)
[2021-02-22 04:07] LABS: Basophils % 0.1 % (0.0-0.8); Hematocrit 36.4 VOL% (42.0-52.0); Hemoglobin 11.8 GM/DL (14.0-18.0); Immature Granulocytes % 0.7 %; Immature Granulocytes Absolute 0.11 #; Lymphocytes # 0.7 10*3/uL (1.4-4.0); Lymphocytes % 4.8 % (21.2-54.2); Mean Corpuscular HGB Conc 32.4 GM/DL (32-36); Mean Corpuscular Volume 103.1 FL (87-102); Monocytes % 6.6 % (1.7-12.7); Neutrophils % 87.8 % (38.7-73.9); Platelet Count 176 T/CUMM (130-400); Red Blood Count 3.53 MC/CUMM (3.8-5.5); Red Cell Distribution Width 13.2 % (9.3-17.3); White Blood Count 15.1 T/CUMM (4-12)
[2021-02-22] MEDS: methylPREDNISolone SOD SUC 40 MG/1 ML VIAL IV SCH ×3 (04:15→20:41)
[2021-02-22 04:25] LABS: Albumin 3.8 G/DL (3.4-5.0); Bilirubin,Direct 0.15 MG/DL (0.0-0.20); Bilirubin,Total 0.5 MG/DL (0.20-1.00); Calcium 8.7 MG/DL (8.5-10.1); Osmolality,Calculated 292.6 MOS/KG (273-304); Potassium 4.3 MMOL/L (3.5-5.1); Total Protein 6.1 G/DL (6.4-8.2)
[2021-02-22 04:27] LABS: High Sensitive Troponin I* 27142.9 ng/L (0-78)
[2021-02-22 04:33] LABS: Band Neutrophils 1 % (0-10); Hypochromasia Slight; Lymphocytes 5 % (20-55); Microcytosis Slight; Platelet Estimate Adequate; Segmented Neutrophils 90 % (50-85); Total Cells Counted 100
[2021-02-22 04:35] LABS: Calcium 8.6 MG/DL (8.5-10.1); Osmolality,Calculated 292.6 MOS/KG (273-304); Potassium 4.2 MMOL/L (3.5-5.1)
[2021-02-22 05:05] LABS: ABG Base Excess 0.1 MMOL/L (-2.5-2.5); ABG HCO3 24.5 MMOL/L (20-26); ABG Oxygen Saturation 96.8 % (95-100); ABG PCO2 48.5 MM HG (35-48); ABG PH 7.344 (7.35-7.45); ABG PO2 96.8 MM HG (80-95); ABG TCO2 23.6 MMOL/L (23-27); Glucose Heart Surgery 122 MG/DL (74-106); Hematocrit Heart Surgery 36.9 PERCENT (42-52); Potassium Heart/CVR 4.1 MMOL/L (3.5-5.1)
[2021-02-22] MEDS: ALBUMIN 5% 12.5 GM/250 ML VIAL IV PRN (06:02)
[2021-02-22] MEDS: CHLORHEXIDINE 0.12% ORAL RINSE 60 ML BOTTLE SWISH/SPIT SCH ×2 (09:32→20:44)
[2021-02-22] MEDS ORDERED: MAGNESIUM SULF RIDER 2 GM/50 ML PREMIX IV PRN (11:07)
[2021-02-22] MEDS ORDERED: ASPIRIN CAFFEINE PO PRN (11:07)
[2021-02-22] MEDS ORDERED: GLUCAGON 1 MG VIAL IM PRN ×2 (11:07)
[2021-02-22] MEDS ORDERED: NON-FORMULARY MEDICATION (Sildenafil 50 mg tablet) PO PRN (11:07)
[2021-02-22] MEDS ORDERED: ONDANSETRON 4 MG/2 ML VIAL IV PRN (11:07)
[2021-02-22] MEDS ORDERED: MAGNESIUM HYDROXIDE SUSP 30 ML UDCUP PO PRN (11:07)
[2021-02-22] MEDS ORDERED: MAGNESIUM SULF RIDER 4 GM/100 ML PREMIX IV PRN (11:07)
[2021-02-22] MEDS ORDERED: ALUMINUM/MAGNES/SIMETH MAX STR 30 ML UDCUP PO PRN (11:07)
[2021-02-22] MEDS ORDERED: DEXTROSE 50% 25 GM/50 ML VIAL IV PRN ×2 (11:07)
[2021-02-22] MEDS ORDERED: HYDROmorphone 2 MG/1 ML VIAL IV PRN (11:07)
[2021-02-22] MEDS ORDERED: POTASSIUM CHLORIDE 20 MEQ TABLET PO PRN (11:07)
[2021-02-22] MEDS ORDERED: SODIUM CHLOR 0.45% KCL 20 MEQ 20 MEQ/1,000 ML BAG IV SCH (11:07)
[2021-02-22] MEDS ORDERED: ACETAMINOPHEN 325 MG TABLET PO PRN (11:07)
[2021-02-22] MEDS ORDERED: INSULIN REGULAR 100 UNIT/ML SUBCUT SCH (11:30)
[2021-02-22] MEDS ORDERED: MAGNESIUM SULF RIDER 2 GM/50 ML PREMIX IV ONE (11:37)
[2021-02-22] MEDS: oxyCODONE/ACETAMINOPHEN 5-325 MG TABLET PO PRN ×2 (13:41→18:54)
[2021-02-22] MEDS: chlordiazePOXIDE 10 MG CAPSULE PO SCH ×2 (16:30→20:41)
[2021-02-22] MEDS: ROSUVASTATIN 20 MG TABLET PO SCH (20:41)
[2021-02-22] MEDS: ZALEPLON 5 MG CAPSULE PO SCH (20:41)
[2021-02-22] MEDS: carvediloL 12.5 MG TABLET PO SCH (20:41)
[2021-02-23] MEDS: KETOROLAC 30 MG/1 ML VIAL IV SCH ×2 (00:09→04:51)
[2021-02-23] MEDS: methylPREDNISolone SOD SUC 40 MG/1 ML VIAL IV SCH ×3 (04:49→21:09)
[2021-02-23 06:00] LABS: Alanine Aminotransferase 33 U/L (16-61); Albumin 3.5 G/DL (3.4-5.0); Alkaline Phosphatase 85 U/L (45-117); Aspartate Amino Transferase 31 U/L (0-37); Bilirubin,Indirect 0.4 MG/DL (0.0-1.0); Blood Urea Nitrogen 53 MG/DL (7-18); Calcium 8.9 MG/DL (8.5-10.1); Carbon Dioxide 22 MMOL/L (21-32); Estimated Glom Filtration Rate 68 ML/MIN; Glucose 99 MG/DL (74-106); Osmolality,Calculated 290.5 MOS/KG (273-304); Sodium 139 MMOL/L (136-145); Total Protein 7.7 G/DL (6.4-8.2)
[2021-02-23] MEDS ORDERED: FUROSEMIDE 40 MG/4 ML VIAL IV ONE ×2 (06:00→15:00)
[2021-02-23 06:42] LABS: Basophils # 0.1 10*3/uL (0.0-0.2); Basophils % 0.4 % (0.0-0.8); Hematocrit 29.4 VOL% (42.0-52.0); Immature Granulocytes % 6.4 %; Immature Granulocytes Absolute 1.53 #; Lymphocytes # 1.4 10*3/uL (1.4-4.0); Lymphocytes % 5.8 % (21.2-54.2); Mean Corpuscular HGB Conc 32.7 GM/DL (32-36); Mean Corpuscular Volume 100.3 FL (87-102); Mean Platelet Volume 9.9 FL (9.6-12.0); Monocytes % 4.7 % (1.7-12.7); Neutrophils % 82.7 % (38.7-73.9); Red Blood Count 2.93 MC/CUMM (3.8-5.5); Red Cell Distribution Width 13.1 % (9.3-17.3)
[2021-02-23 06:45] LABS: Hemoglobin 9.6 GM/DL (14.0-18.0); Platelet Count 418 T/CUMM (130-400)
[2021-02-23 06:50] LABS: Hypochromasia Slight; Lymphocytes 8 % (20-55); Microcytosis Slight; Platelet Estimate Adequate; Segmented Neutrophils 90 % (50-85); Total Cells Counted 100
[2021-02-23] MEDS ORDERED: DAPAGLIFLOZIN METFORMIN PO SCH (09:00)
[2021-02-23] MEDS ORDERED: POTASSIUM CHLORIDE 20 MEQ TABLET PO SCH (09:00)
[2021-02-23] MEDS ORDERED: ASPIRIN 325 MG TABLET PO SCH (09:00)
[2021-02-23] MEDS ORDERED: ISOSORBIDE MONONITRATE 30 MG TABLET PO SCH (09:00)
[2021-02-23] MEDS: carvediloL 12.5 MG TABLET PO SCH ×2 (09:20→21:04)
[2021-02-23] MEDS: ASCORBIC ACID 500 MG TABLET PO SCH (09:20)
[2021-02-23] MEDS: FERROUS SULFATE 325 MG TABLET PO SCH (09:20)
[2021-02-23] MEDS: DOCUSATE SODIUM 100 MG CAPSULE PO SCH (09:20)
[2021-02-23] MEDS: chlordiazePOXIDE 10 MG CAPSULE PO SCH ×3 (09:20→21:04)
[2021-02-23] MEDS: THIAMINE 100 MG TABLET PO SCH (09:20)
[2021-02-23] MEDS: MULTIVITAMIN (BEROCCA) TABLET PO SCH (09:20)
[2021-02-23] MEDS: PANTOPRAZOLE 40 MG TABLET PO SCH (09:20)
[2021-02-23] MEDS: CHLORHEXIDINE 0.12% ORAL RINSE 60 ML BOTTLE SWISH/SPIT SCH ×2 (09:20→21:09)
[2021-02-23] MEDS: ASPIRIN EC 325 MG TABLET PO SCH (09:21)
[2021-02-23] MEDS: oxyCODONE/ACETAMINOPHEN 5-325 MG TABLET PO PRN ×2 (12:50→21:05)
[2021-02-23] MEDS: ALBUTEROL/IPRATROPIUM 3 ML NEB RESP TX SCH ×2 (13:12→20:24)
[2021-02-23] MEDS: ZALEPLON 5 MG CAPSULE PO SCH (21:04)
[2021-02-23] MEDS: ROSUVASTATIN 20 MG TABLET PO SCH (21:04)
[2021-02-23] MEDS: FOLIC ACID 1 MG TABLET PO SCH (21:05)
[2021-02-23] MEDS: INSULIN REGULAR 100 UNIT/ML SUBCUT SCH (21:09)
[2021-02-24] MEDS: ALBUTEROL/IPRATROPIUM 3 ML NEB RESP TX SCH ×4 (00:53→20:40)
[2021-02-24] MEDS: methylPREDNISolone SOD SUC 40 MG/1 ML VIAL IV SCH ×3 (04:32→21:13)
[2021-02-24] MEDS: oxyCODONE/ACETAMINOPHEN 5-325 MG TABLET PO PRN (05:15)
[2021-02-24 05:22] LABS: Hematocrit 29.9 VOL% (42.0-52.0); Hemoglobin 9.7 GM/DL (14.0-18.0); Immature Granulocytes % 0.8 %; Immature Granulocytes Absolute 0.07 #; Lymphocytes # 1.1 10*3/uL (1.4-4.0); Lymphocytes % 11.5 % (21.2-54.2); Mean Corpuscular HGB Conc 32.4 GM/DL (32-36); Mean Corpuscular Volume 103.5 FL (87-102); Mean Platelet Volume 11.7 FL (9.6-12.0); Monocytes % 10.5 % (1.7-12.7); Neutrophils % 77.2 % (38.7-73.9); Red Blood Count 2.89 MC/CUMM (3.8-5.5)
[2021-02-24 05:47] LABS: White Blood Count 9.2 T/CUMM (4-12)
[2021-02-24 05:48] LABS: Platelet Count 123 T/CUMM (130-400)
[2021-02-24 05:55] LABS: Atypical Lymphocytes Few; Band Neutrophils 2 % (0-10); Lymphocytes 17 % (20-55); Segmented Neutrophils 71 % (50-85); Total Cells Counted 100
[2021-02-24 05:56] LABS: Hypochromasia Slight; Microcytosis Slight; Platelet Estimate Adequate
[2021-02-24] MEDS ORDERED: KETOROLAC 30 MG/1 ML VIAL IV STA (07:43)
[2021-02-24] MEDS ORDERED: FUROSEMIDE 40 MG/4 ML VIAL IV ONE ×2 (08:20→21:15)
[2021-02-24 08:35] LABS: Alanine Aminotransferase 19 U/L (16-61); Albumin 2.9 G/DL (3.4-5.0); Alkaline Phosphatase 62 U/L (45-117); Aspartate Amino Transferase 35 U/L (0-37); Blood Urea Nitrogen 27 MG/DL (7-18); Calcium 8.8 MG/DL (8.5-10.1); Carbon Dioxide 29 MMOL/L (21-32); Estimated Glom Filtration Rate 132 ML/MIN; Glucose 217 MG/DL (74-106); Osmolality,Calculated 288.5 MOS/KG (273-304); Sodium 139 MMOL/L (136-145)
[2021-02-24] MEDS ORDERED: SPIRONOLACTONE 25 MG TABLET PO SCH (09:00)
[2021-02-24] MEDS ORDERED: POTASSIUM CHLORIDE 10 MEQ TABLET PO SCH (09:00)
[2021-02-24] MEDS ORDERED: FUROSEMIDE 40 MG TABLET PO SCH ×2 (09:00)
[2021-02-24] MEDS: THIAMINE 100 MG TABLET PO SCH (09:33)
[2021-02-24] MEDS: FERROUS SULFATE 325 MG TABLET PO SCH (09:33)
[2021-02-24] MEDS: ASPIRIN EC 325 MG TABLET PO SCH (09:33)
[2021-02-24] MEDS: ASCORBIC ACID 500 MG TABLET PO SCH (09:33)
[2021-02-24] MEDS: carvediloL 12.5 MG TABLET PO SCH (09:33)
[2021-02-24] MEDS: PANTOPRAZOLE 40 MG TABLET PO SCH (09:33)
[2021-02-24] MEDS: MULTIVITAMIN (BEROCCA) TABLET PO SCH (09:33)
[2021-02-24] MEDS: chlordiazePOXIDE 10 MG CAPSULE PO SCH ×3 (09:34→21:44)
[2021-02-24] MEDS: DOCUSATE SODIUM 100 MG CAPSULE PO SCH (09:35)
[2021-02-24] MEDS: INSULIN REGULAR 100 UNIT/ML SUBCUT SCH ×4 (09:35→21:40)
[2021-02-24] MEDS: CHLORHEXIDINE 0.12% ORAL RINSE 60 ML BOTTLE SWISH/SPIT SCH ×2 (09:36→21:46)
[2021-02-24] MEDS: metFORMIN 850 MG TABLET PO SCH ×2 (12:44→17:00)
[2021-02-24 14:10] LABS: Hemoglobin 9.9 GM/DL (14.0-18.0); Immature Granulocytes % 0.9 %; Immature Granulocytes Absolute 0.09 #; Lymphocytes # 0.6 10*3/uL (1.4-4.0); Lymphocytes % 5.9 % (21.2-54.2); Mean Corpuscular Volume 102.4 FL (87-102); Mean Platelet Volume 11.3 FL (9.6-12.0); Monocytes % 7.7 % (1.7-12.7); Neutrophils % 85.5 % (38.7-73.9); Platelet Count 123 T/CUMM (130-400); Red Blood Count 2.93 MC/CUMM (3.8-5.5); Red Cell Distribution Width 12.7 % (9.3-17.3); White Blood Count 9.7 T/CUMM (4-12)
[2021-02-24 14:30] LABS: Calcium 8.5 MG/DL (8.5-10.1); Osmolality,Calculated 297.7 MOS/KG (273-304); Potassium 4.6 MMOL/L (3.5-5.1)
[2021-02-24 14:47] LABS: Lymphocytes 7 % (20-55); Segmented Neutrophils 88 % (50-85); Total Cells Counted 100
[2021-02-24 14:48] LABS: Platelet Estimate Normal
[2021-02-24 14:58] LABS: Polychromasia Slight
[2021-02-24 14:59] LABS: Macrocytosis 1+
[2021-02-24] MEDS ORDERED: INSULIN REGULAR 100 UNIT/ML SUBCUT ONE (15:32)
[2021-02-24] MEDS ORDERED: FUROSEMIDE 40 MG/4 ML VIAL IV SCH (16:00)
[2021-02-24] MEDS: carvediloL 6.25 MG TABLET PO SCH (21:12)
[2021-02-24] MEDS: KETOROLAC 30 MG/1 ML VIAL IV PRN (21:13)
[2021-02-24] MEDS: ROSUVASTATIN 20 MG TABLET PO SCH (21:44)
[2021-02-24] MEDS: FOLIC ACID 1 MG TABLET PO SCH (21:45)
[2021-02-24] MEDS: ZALEPLON 5 MG CAPSULE PO SCH (21:45)
[2021-02-25] MEDS: ALBUTEROL/IPRATROPIUM 3 ML NEB RESP TX SCH ×4 (00:37→20:04)
[2021-02-25] MEDS: KETOROLAC 30 MG/1 ML VIAL IV PRN ×2 (04:09→19:41)
[2021-02-25 04:25] LABS: Basophils % 0.1 % (0.0-0.8); Eosinophils % 0.2 % (0.00-10.9); Hematocrit 31.5 VOL% (42.0-52.0); Hemoglobin 10.2 GM/DL (14.0-18.0); Immature Granulocytes % 1.6 %; Immature Granulocytes Absolute 0.18 #; Lymphocytes # 1.1 10*3/uL (1.4-4.0); Lymphocytes % 9.8 % (21.2-54.2); Mean Corpuscular HGB Conc 32.4 GM/DL (32-36); Mean Platelet Volume 11.7 FL (9.6-12.0); Monocytes % 7.8 % (1.7-12.7); Neutrophils % 80.5 % (38.7-73.9); Platelet Count 142 T/CUMM (130-400); Red Blood Count 3.03 MC/CUMM (3.8-5.5); Red Cell Distribution Width 12.8 % (9.3-17.3)
[2021-02-25 04:53] LABS: Blood Urea Nitrogen 30 MG/DL (7-18); Calcium 8.5 MG/DL (8.5-10.1); Carbon Dioxide 31 MMOL/L (21-32); Estimated Glom Filtration Rate 109 ML/MIN; Glucose 226 MG/DL (74-106); Osmolality,Calculated 293.3 MOS/KG (273-304); Potassium 4.3 MMOL/L (3.5-5.1); Sodium 141 MMOL/L (136-145)
[2021-02-25 05:13] LABS: Lymphocytes 9 % (20-55); Platelet Estimate Normal; Segmented Neutrophils 87 % (50-85); Total Cells Counted 100
[2021-02-25] MEDS: ASCORBIC ACID 500 MG TABLET PO SCH (08:56)
[2021-02-25] MEDS: carvediloL 6.25 MG TABLET PO SCH (08:57)
[2021-02-25] MEDS: predniSONE 20 MG TABLET PO SCH ×2 (08:57→21:40)
[2021-02-25] MEDS: MULTIVITAMIN (BEROCCA) TABLET PO SCH (08:57)
[2021-02-25] MEDS: GABAPENTIN 100 MG CAPSULE PO SCH ×3 (08:58→21:39)
[2021-02-25] MEDS: FUROSEMIDE 40 MG TABLET PO SCH ×2 (08:58→15:07)
[2021-02-25] MEDS: THIAMINE 100 MG TABLET PO SCH (08:58)
[2021-02-25] MEDS: ASPIRIN EC 325 MG TABLET PO SCH (08:58)
[2021-02-25] MEDS: SPIRONOLACTONE 25 MG TABLET PO SCH (08:58)
[2021-02-25] MEDS: PANTOPRAZOLE 40 MG TABLET PO SCH (08:58)
[2021-02-25] MEDS: FERROUS SULFATE 325 MG TABLET PO SCH (08:58)
[2021-02-25] MEDS: INSULIN REGULAR 100 UNIT/ML SUBCUT SCH ×4 (08:59→21:38)
[2021-02-25] MEDS: INSULIN GLARGINE 100 UNIT/ML SUBCUT SCH (08:59)
[2021-02-25] MEDS: methylPREDNISolone SOD SUC 40 MG/1 ML VIAL IV SCH (09:06)
[2021-02-25] MEDS ORDERED: CLORAZEPATE 3.75 MG TABLET PO PRN (09:08)
[2021-02-25] MEDS: chlordiazePOXIDE 10 MG CAPSULE PO SCH (09:13)
[2021-02-25] MEDS: DOCUSATE SODIUM 100 MG CAPSULE PO SCH (09:14)
[2021-02-25] MEDS: CHLORHEXIDINE 0.12% ORAL RINSE 60 ML BOTTLE SWISH/SPIT SCH ×2 (09:36→21:40)
[2021-02-25] MEDS: metFORMIN 850 MG TABLET PO SCH (11:32)
[2021-02-25] MEDS: metFORMIN 500 MG TABLET PO SCH (16:56)
[2021-02-25] MEDS: carvediloL 3.125 MG TABLET PO SCH (21:39)
[2021-02-25] MEDS: ROSUVASTATIN 20 MG TABLET PO SCH (21:39)
[2021-02-25] MEDS: ZALEPLON 5 MG CAPSULE PO SCH (21:39)
[2021-02-25] MEDS: FOLIC ACID 1 MG TABLET PO SCH (21:40)
[2021-02-26] MEDS: ALBUTEROL/IPRATROPIUM 3 ML NEB RESP TX SCH ×2 (00:06→07:40)
[2021-02-26 04:29] LABS: Basophils % 0.2 % (0.0-0.8); Eosinophils # 0.1 10*3/uL (0.0-0.87); Eosinophils % 0.6 % (0.00-10.9); Hematocrit 31.6 VOL% (42.0-52.0); Hemoglobin 10.2 GM/DL (14.0-18.0); Immature Granulocytes % 2.1 %; Immature Granulocytes Absolute 0.17 #; Lymphocytes # 0.9 10*3/uL (1.4-4.0); Mean Corpuscular HGB Conc 32.3 GM/DL (32-36); Mean Corpuscular Volume 103.9 FL (87-102); Mean Platelet Volume 11.5 FL (9.6-12.0); Monocytes % 9.6 % (1.7-12.7); Neutrophils % 76.5 % (38.7-73.9); Platelet Count 162 T/CUMM (130-400); Red Blood Count 3.04 MC/CUMM (3.8-5.5); Red Cell Distribution Width 12.6 % (9.3-17.3); White Blood Count 8.3 T/CUMM (4-12)
[2021-02-26 04:49] LABS: Alanine Aminotransferase 30 U/L (16-61); Albumin 2.6 G/DL (3.4-5.0); Alkaline Phosphatase 79 U/L (45-117); Aspartate Amino Transferase 18 U/L (0-37); Bilirubin,Indirect 0.3 MG/DL (0.0-1.0); Blood Urea Nitrogen 29 MG/DL (7-18); Calcium 8.1 MG/DL (8.5-10.1); Carbon Dioxide 33 MMOL/L (21-32); Estimated Glom Filtration Rate 124 ML/MIN; Glucose 255 MG/DL (74-106); Osmolality,Calculated 295.3 MOS/KG (273-304); Potassium 4.1 MMOL/L (3.5-5.1); Sodium 141 MMOL/L (136-145); Total Protein 5.4 G/DL (6.4-8.2)
[2021-02-26 04:56] LABS: Atypical Lymphocytes Few; Eosinophils 1 % (0-10); Hypochromasia 1+; Lymphocytes 13 % (20-55); Segmented Neutrophils 77 % (50-85); Total Cells Counted 100
[2021-02-26 04:57] LABS: Microcytosis 1+; Platelet Estimate Adequate; Polychromasia Slight
[2021-02-26 08:15] VITALS: BP 107/72
[2021-02-26] MEDS: DOCUSATE SODIUM 100 MG CAPSULE PO SCH (08:55)
[2021-02-26] MEDS: FERROUS SULFATE 325 MG TABLET PO SCH (08:55)
[2021-02-26] MEDS: MULTIVITAMIN (BEROCCA) TABLET PO SCH (08:55)
[2021-02-26] MEDS: metFORMIN 500 MG TABLET PO SCH (08:55)
[2021-02-26] MEDS: ASCORBIC ACID 500 MG TABLET PO SCH (08:55)
[2021-02-26] MEDS: THIAMINE 100 MG TABLET PO SCH (08:56)
[2021-02-26] MEDS: GABAPENTIN 100 MG CAPSULE PO SCH (08:56)
[2021-02-26] MEDS: carvediloL 3.125 MG TABLET PO SCH (08:56)
[2021-02-26] MEDS: SPIRONOLACTONE 25 MG TABLET PO SCH (08:56)
[2021-02-26] MEDS: FUROSEMIDE 40 MG TABLET PO SCH (08:56)
[2021-02-26] MEDS: predniSONE 20 MG TABLET PO SCH (08:56)
[2021-02-26] MEDS: PANTOPRAZOLE 40 MG TABLET PO SCH (08:56)
[2021-02-26] MEDS: CHLORHEXIDINE 0.12% ORAL RINSE 60 ML BOTTLE SWISH/SPIT SCH (08:57)
[2021-02-26] MEDS: INSULIN REGULAR 100 UNIT/ML SUBCUT SCH (08:57)
[2021-02-26] MEDS: INSULIN GLARGINE 100 UNIT/ML SUBCUT SCH (08:57)
[2021-02-26] MEDS ORDERED: CLOPIDOGREL 75 MG TABLET PO SCH (09:00)
[2021-02-26] MEDS ORDERED: ASPIRIN EC 81 MG TABLET PO SCH (09:00)
== END 2021-02-26 11:47 | disposition home health service (06) | DRG 236 ==
LOC: N.TELEN 02-20 09:23 → N.CVR 02-21 11:48 → N.TELES 02-22 11:07

== ENCOUNTER 2021-03-15 09:04 | Observation (INO) ==
[2021-03-15] MEDS ORDERED: HYDROmorphone 2 MG/1 ML VIAL IV STA (10:16)
[2021-03-15] MEDS ORDERED: ONDANSETRON 4 MG/2 ML VIAL IV STA (10:17)
[2021-03-15 10:27] LABS: Basophils % 0.6 % (0.0-0.8); Red Cell Distribution Width 13.2 % (9.3-17.3)
[2021-03-15] MEDS ORDERED: CLINDAMYCIN INJ 900 MG/50 ML PREMIX IV ONE (10:42)
[2021-03-15 10:43] LABS: Calcium 8.8 MG/DL (8.5-10.1); Osmolality,Calculated 275.1 MOS/KG (273-304); Potassium 4.4 MMOL/L (3.5-5.1)
[2021-03-15 10:50] LABS: INR 1.1; PT Patient Result 12.1 SECS (10.5-12.0)
[2021-03-15 10:58] LABS: Basophils # 0.1 10*3/uL (0.0-0.2); Hematocrit 37.8 VOL% (42.0-52.0); Hemoglobin 12.8 GM/DL (14.0-18.0); Immature Granulocytes % 0.5 %; Immature Granulocytes Absolute 0.05 #; Lymphocytes # 1.7 10*3/uL (1.4-4.0); Lymphocytes % 16.1 % (21.2-54.2); Mean Corpuscular HGB Conc 33.9 GM/DL (32-36); Mean Platelet Volume 9.8 FL (9.6-12.0); Monocytes % 9.4 % (1.7-12.7); Neutrophils % 64.4 % (38.7-73.9); Platelet Count 236 T/CUMM (130-400); Red Blood Count 3.82 MC/CUMM (3.8-5.5); White Blood Count 10.6 T/CUMM (4-12)
[2021-03-15] MEDS ORDERED: BUPIVACAINE MPF 0.25% 30 ML VIAL ONE (12:36)
[2021-03-15] MEDS ORDERED: LIDOCAINE 1%/EPI INJ 20 ML VIAL ONE (12:36)
[2021-03-15] MEDS ORDERED: MIDAZOLAM 2 MG/2 ML VIAL ONE (12:49)
[2021-03-15] MEDS ORDERED: LIDOCAINE 2% 5 ML VIAL ONE (12:49)
[2021-03-15] MEDS ORDERED: propofoL 200 MG/20 ML VIAL IV ONE (12:49)
[2021-03-15] MEDS ORDERED: fentaNYL 100 MCG/2 ML VIAL ONE (12:49)
[2021-03-15] MEDS ORDERED: LACTATED RINGERS 1,000 ML IV ONE (12:55)
[2021-03-15 16:48] VITALS: BP 95/57
== END 2021-03-15 16:25 | disposition home or self-care (01) ==
LOC: N.ED 09:04 → N.5E 12:40 → INTOOBSV 13:25
PROVIDERS: ADMIT Student in an Organized Health Care Education/Training Program; ATTEND Student in an Organized Health Care Education/Training Program

== ENCOUNTER 2021-04-14 12:00 | Inpatient (IN) ==
[2021-04-14 14:39] LABS: Basophils # 0.1 10*3/uL (0.0-0.2); Basophils % 0.6 % (0.0-0.8); Eosinophils # 0.5 10*3/uL (0.0-0.87); Eosinophils % 3.4 % (0.00-10.9); Hematocrit 38.4 VOL% (42.0-52.0); Hemoglobin 12.2 GM/DL (14.0-18.0); Immature Granulocytes % 0.7 %; Lymphocytes % 13.2 % (21.2-54.2); Mean Corpuscular HGB Conc 31.8 GM/DL (32-36); Mean Platelet Volume 10.3 FL (9.6-12.0); Monocytes % 9.4 % (1.7-12.7); Neutrophils % 72.7 % (38.7-73.9); Platelet Count 288 T/CUMM (130-400); Red Blood Count 3.92 MC/CUMM (3.8-5.5); Red Cell Distribution Width 13.8 % (9.3-17.3)
[2021-04-14] MEDS ORDERED: ONDANSETRON 4 MG/2 ML VIAL ONE (14:49)
[2021-04-14] MEDS ORDERED: HYDROmorphone 2 MG/1 ML VIAL ONE (14:50)
[2021-04-14] MEDS ORDERED: HYDROmorphone 2 MG/1 ML VIAL IV STA ×2 (14:57→15:58)
[2021-04-14] MEDS ORDERED: ONDANSETRON 4 MG/2 ML VIAL IV STA (14:57)
[2021-04-14 15:12] LABS: Alanine Aminotransferase 13 U/L (16-61); Alkaline Phosphatase 106 U/L (45-117); Aspartate Amino Transferase 10 U/L (0-37); Bilirubin,Total < 0.39 MG/DL (0.20-1.00); Blood Urea Nitrogen 14 MG/DL (7-18); Calcium 8.9 MG/DL (8.5-10.1); Carbon Dioxide 34 MMOL/L (21-32); Estimated Glom Filtration Rate 4189 ML/MIN; Glucose 210 MG/DL (74-106); Potassium 3.7 MMOL/L (3.5-5.1); Sodium 136 MMOL/L (136-145); Total Protein 7.4 G/DL (6.4-8.2)
[2021-04-14] MEDS ORDERED: VANCOMYCIN INJ 1,000 MG in SODIUM CHLORIDE 0.9% 250 ML IV STA (15:56)
[2021-04-14] MEDS ORDERED: GLUCAGON 1 MG VIAL IM PRN ×2 (16:17→16:19)
[2021-04-14] MEDS ORDERED: DEXTROSE 50% 25 GM/50 ML VIAL IV PRN ×2 (16:17→16:19)
[2021-04-14] MEDS ORDERED: ONDANSETRON 4 MG/2 ML VIAL IV PRN (16:19)
[2021-04-14] MEDS ORDERED: ACETAMINOPHEN 325 MG TABLET PO PRN (16:25)
[2021-04-14] MEDS ORDERED: ZOLPIDEM 5 MG TABLET PO PRN (16:27)
[2021-04-14] MEDS ORDERED: VANCOMYCIN INJ 1,000 MG in SODIUM CHLORIDE 0.9% 250 ML IV SCH (16:30)
[2021-04-14] MEDS: INSULIN LISPRO 100 UNIT/ML SUBCUT SCH ×2 (19:22→23:29)
[2021-04-14] MEDS: GABAPENTIN 100 MG CAPSULE PO SCH ×2 (20:19→23:29)
[2021-04-14] MEDS: ROSUVASTATIN 20 MG TABLET PO SCH ×2 (20:19→23:29)
[2021-04-14] MEDS: FUROSEMIDE 40 MG TABLET PO SCH ×2 (20:20→23:29)
[2021-04-14] MEDS: carvediloL 3.125 MG TABLET PO SCH ×2 (20:20→23:29)
[2021-04-14] MEDS: ENOXAPARIN 40 MG/0.4 ML SYRINGE SUBCUT SCH ×2 (20:20→23:29)
[2021-04-14] MEDS ORDERED: ZALEPLON 5 MG CAPSULE PO PRN (20:27)
[2021-04-14] MEDS: HYDROmorphone 2 MG/1 ML VIAL IV PRN (20:41)
[2021-04-14] MEDS: SPIRONOLACTONE 25 MG TABLET PO SCH (23:28)
[2021-04-14] MEDS: DOCUSATE SODIUM 100 MG CAPSULE PO SCH (23:28)
[2021-04-15] MEDS: HYDROmorphone 2 MG/1 ML VIAL IV PRN ×5 (02:45→19:46)
[2021-04-15] MEDS: VANCOMYCIN INJ 1,500 MG in SODIUM CHLORIDE 0.9% 500 ML IV SCH ×2 (04:15→16:13)
[2021-04-15 05:34] LABS: Basophils # 0.1 10*3/uL (0.0-0.2); Basophils % 0.8 % (0.0-0.8); Eosinophils # 0.6 10*3/uL (0.0-0.87); Eosinophils % 4.6 % (0.00-10.9); Hematocrit 37.1 VOL% (42.0-52.0); Hemoglobin 11.9 GM/DL (14.0-18.0); Immature Granulocytes % 0.6 %; Immature Granulocytes Absolute 0.08 #; Lymphocytes # 1.8 10*3/uL (1.4-4.0); Lymphocytes % 12.7 % (21.2-54.2); Mean Corpuscular HGB Conc 32.1 GM/DL (32-36); Mean Corpuscular Volume 99.7 FL (87-102); Mean Platelet Volume 10.3 FL (9.6-12.0); Monocytes % 8.3 % (1.7-12.7); Platelet Count 287 T/CUMM (130-400); Red Blood Count 3.72 MC/CUMM (3.8-5.5); Red Cell Distribution Width 13.7 % (9.3-17.3); White Blood Count 13.8 T/CUMM (4-12)
[2021-04-15 05:54] LABS: Albumin 2.8 G/DL (3.4-5.0); Bilirubin,Total 1.1 MG/DL (0.20-1.00); Osmolality,Calculated 269.5 MOS/KG (273-304); Potassium 3.6 MMOL/L (3.5-5.1); Total Protein 6.9 G/DL (6.4-8.2)
[2021-04-15] MEDS: INSULIN LISPRO 100 UNIT/ML SUBCUT SCH ×4 (07:59→20:10)
[2021-04-15] MEDS: GABAPENTIN 100 MG CAPSULE PO SCH ×2 (08:44→20:52)
[2021-04-15] MEDS: buPROPion XL 150 MG TABLET PO SCH (08:44)
[2021-04-15] MEDS: DOCUSATE SODIUM 100 MG CAPSULE PO SCH ×2 (08:44→20:51)
[2021-04-15] MEDS: SPIRONOLACTONE 25 MG TABLET PO SCH ×2 (08:44→20:52)
[2021-04-15] MEDS: PANTOPRAZOLE 40 MG TABLET PO SCH (08:45)
[2021-04-15] MEDS: carvediloL 3.125 MG TABLET PO SCH ×2 (08:45→20:52)
[2021-04-15] MEDS: CLOPIDOGREL 75 MG TABLET PO SCH (08:45)
[2021-04-15] MEDS: ASPIRIN EC 81 MG TABLET PO SCH (08:45)
[2021-04-15] MEDS: FUROSEMIDE 40 MG TABLET PO SCH ×2 (08:46→20:52)
[2021-04-15] MEDS: LEVOFLOXACIN INJ 500 MG/100 ML PREMIX IV SCH (11:17)
[2021-04-15] MEDS ORDERED: MAGNESIUM SULF RIDER 2 GM/50 ML PREMIX IV PRN (16:27)
[2021-04-15] MEDS ORDERED: MAGNESIUM SULF RIDER 4 GM/100 ML PREMIX IV PRN (16:27)
[2021-04-15] MEDS: ENOXAPARIN 40 MG/0.4 ML SYRINGE SUBCUT SCH (20:51)
[2021-04-15] MEDS: ROSUVASTATIN 20 MG TABLET PO SCH (20:51)
[2021-04-16] MEDS: HYDROmorphone 2 MG/1 ML VIAL IV PRN ×4 (02:46→21:51)
[2021-04-16] MEDS: VANCOMYCIN INJ 1,500 MG in SODIUM CHLORIDE 0.9% 500 ML IV SCH ×3 (04:30→16:58)
[2021-04-16 05:45] LABS: Basophils % 0.4 % (0.0-0.8); Eosinophils # 0.7 10*3/uL (0.0-0.87); Hematocrit 33.8 VOL% (42.0-52.0); Immature Granulocytes % 0.6 %; Immature Granulocytes Absolute 0.06 #; Lymphocytes # 1.3 10*3/uL (1.4-4.0); Lymphocytes % 12.1 % (21.2-54.2); Mean Corpuscular HGB Conc 32.5 GM/DL (32-36); Mean Corpuscular Volume 97.7 FL (87-102); Mean Platelet Volume 10.1 FL (9.6-12.0); Monocytes % 9.1 % (1.7-12.7); Neutrophils % 71.8 % (38.7-73.9); Platelet Count 256 T/CUMM (130-400); Red Blood Count 3.46 MC/CUMM (3.8-5.5); Red Cell Distribution Width 13.6 % (9.3-17.3); White Blood Count 10.8 T/CUMM (4-12)
[2021-04-16 05:59] LABS: Calcium 8.8 MG/DL (8.5-10.1); Potassium 3.4 MMOL/L (3.5-5.1)
[2021-04-16] MEDS: INSULIN LISPRO 100 UNIT/ML SUBCUT SCH ×3 (08:24→15:58)
[2021-04-16] MEDS ORDERED: POTASSIUM CHLORIDE 20 MEQ TABLET PO ONE (09:00)
[2021-04-16] MEDS: FUROSEMIDE 40 MG TABLET PO SCH ×3 (10:10→21:37)
[2021-04-16] MEDS: carvediloL 3.125 MG TABLET PO SCH ×2 (10:10→21:37)
[2021-04-16] MEDS: GABAPENTIN 100 MG CAPSULE PO SCH ×2 (10:10→21:38)
[2021-04-16] MEDS: SPIRONOLACTONE 25 MG TABLET PO SCH ×2 (10:10→21:38)
[2021-04-16] MEDS: CLOPIDOGREL 75 MG TABLET PO SCH (10:11)
[2021-04-16] MEDS: buPROPion XL 150 MG TABLET PO SCH (10:12)
[2021-04-16] MEDS: PANTOPRAZOLE 40 MG TABLET PO SCH (10:12)
[2021-04-16] MEDS: DOCUSATE SODIUM 100 MG CAPSULE PO SCH ×2 (10:12→21:37)
[2021-04-16] MEDS: ASPIRIN EC 81 MG TABLET PO SCH (10:12)
[2021-04-16] MEDS: LEVOFLOXACIN INJ 500 MG/100 ML PREMIX IV SCH (10:17)
[2021-04-16] MEDS ORDERED: LINEZOLID INJ 600 MG/300 ML PREMIX IV SCH (13:00)
[2021-04-16] MEDS: KETOROLAC 15 MG/1 ML VIAL IV SCH ×2 (13:35→18:14)
[2021-04-16] MEDS: ROSUVASTATIN 20 MG TABLET PO SCH (21:37)
[2021-04-16] MEDS: ENOXAPARIN 40 MG/0.4 ML SYRINGE SUBCUT SCH (21:38)
[2021-04-17] MEDS: KETOROLAC 15 MG/1 ML VIAL IV SCH ×4 (01:10→20:33)
[2021-04-17] MEDS: HYDROmorphone 2 MG/1 ML VIAL IV PRN ×6 (01:10→21:50)
[2021-04-17] MEDS: INSULIN LISPRO 100 UNIT/ML SUBCUT SCH ×5 (01:53→20:34)
[2021-04-17 04:55] LABS: Basophils # 0.1 10*3/uL (0.0-0.2); Basophils % 0.5 % (0.0-0.8); Eosinophils # 0.5 10*3/uL (0.0-0.87); Eosinophils % 5.7 % (0.00-10.9); Hematocrit 35.6 VOL% (42.0-52.0); Hemoglobin 11.3 GM/DL (14.0-18.0); Immature Granulocytes % 0.6 %; Immature Granulocytes Absolute 0.06 #; Lymphocytes # 1.4 10*3/uL (1.4-4.0); Lymphocytes % 14.9 % (21.2-54.2); Mean Corpuscular HGB Conc 31.7 GM/DL (32-36); Mean Corpuscular Volume 96.7 FL (87-102); Neutrophils % 68.3 % (38.7-73.9); Platelet Count 287 T/CUMM (130-400); Red Blood Count 3.68 MC/CUMM (3.8-5.5); Red Cell Distribution Width 13.7 % (9.3-17.3); White Blood Count 9.3 T/CUMM (4-12)
[2021-04-17 05:16] LABS: Potassium 3.3 MMOL/L (3.5-5.1)
[2021-04-17] MEDS: GABAPENTIN 100 MG CAPSULE PO SCH ×2 (08:54→20:32)
[2021-04-17] MEDS: ASPIRIN EC 81 MG TABLET PO SCH (08:54)
[2021-04-17] MEDS: CLOPIDOGREL 75 MG TABLET PO SCH (08:55)
[2021-04-17] MEDS: buPROPion XL 150 MG TABLET PO SCH (08:55)
[2021-04-17] MEDS: DOCUSATE SODIUM 100 MG CAPSULE PO SCH ×2 (08:55→20:32)
[2021-04-17] MEDS: SULFAMETHOX/TRIMETHOPRIM 800-160 MG TABLET PO SCH ×2 (08:55→16:22)
[2021-04-17] MEDS: PANTOPRAZOLE 40 MG TABLET PO SCH (08:56)
[2021-04-17] MEDS: carvediloL 3.125 MG TABLET PO SCH ×2 (08:56→20:32)
[2021-04-17] MEDS: SPIRONOLACTONE 25 MG TABLET PO SCH ×2 (08:56→20:32)
[2021-04-17] MEDS: FUROSEMIDE 40 MG TABLET PO SCH ×2 (08:56→22:14)
[2021-04-17] MEDS: LEVOFLOXACIN INJ 500 MG/100 ML PREMIX IV SCH ×2 (11:29→12:28)
[2021-04-17] MEDS: POTASSIUM CHLORIDE 20 MEQ TABLET PO PRN ×3 (13:41→17:40)
[2021-04-17] MEDS: ROSUVASTATIN 20 MG TABLET PO SCH (20:32)
[2021-04-17] MEDS: ENOXAPARIN 40 MG/0.4 ML SYRINGE SUBCUT SCH (20:33)
[2021-04-18] MEDS: HYDROmorphone 2 MG/1 ML VIAL IV PRN ×2 (01:17→06:18)
[2021-04-18] MEDS: KETOROLAC 15 MG/1 ML VIAL IV SCH ×4 (03:08→22:14)
[2021-04-18 06:48] LABS: Basophils # 0.1 10*3/uL (0.0-0.2); Basophils % 0.7 % (0.0-0.8); Eosinophils # 0.4 10*3/uL (0.0-0.87); Hematocrit 35.7 VOL% (42.0-52.0); Hemoglobin 11.3 GM/DL (14.0-18.0); Immature Granulocytes % 0.9 %; Immature Granulocytes Absolute 0.07 #; Lymphocytes # 1.4 10*3/uL (1.4-4.0); Lymphocytes % 16.8 % (21.2-54.2); Mean Corpuscular HGB Conc 31.7 GM/DL (32-36); Mean Corpuscular Volume 96.7 FL (87-102); Mean Platelet Volume 9.8 FL (9.6-12.0); Monocytes % 10.6 % (1.7-12.7); Platelet Count 291 T/CUMM (130-400); Red Blood Count 3.69 MC/CUMM (3.8-5.5); Red Cell Distribution Width 13.8 % (9.3-17.3)
[2021-04-18 07:02] LABS: Calcium 9.2 MG/DL (8.5-10.1); Osmolality,Calculated 284.4 MOS/KG (273-304); Potassium 3.9 MMOL/L (3.5-5.1)
[2021-04-18] MEDS: DOCUSATE SODIUM 100 MG CAPSULE PO SCH ×2 (09:30→22:18)
[2021-04-18] MEDS: INSULIN LISPRO 100 UNIT/ML SUBCUT SCH ×4 (09:30→22:28)
[2021-04-18] MEDS: GABAPENTIN 100 MG CAPSULE PO SCH ×2 (09:31→22:18)
[2021-04-18] MEDS: FUROSEMIDE 40 MG TABLET PO SCH ×2 (09:31→22:20)
[2021-04-18] MEDS: PANTOPRAZOLE 40 MG TABLET PO SCH (09:31)
[2021-04-18] MEDS: SPIRONOLACTONE 25 MG TABLET PO SCH ×2 (09:31→22:19)
[2021-04-18] MEDS: carvediloL 3.125 MG TABLET PO SCH ×2 (09:31→22:18)
[2021-04-18] MEDS: SULFAMETHOX/TRIMETHOPRIM 800-160 MG TABLET PO SCH ×2 (09:31→16:20)
[2021-04-18] MEDS: CLOPIDOGREL 75 MG TABLET PO SCH (09:31)
[2021-04-18] MEDS: ASPIRIN EC 81 MG TABLET PO SCH (09:31)
[2021-04-18] MEDS: buPROPion XL 150 MG TABLET PO SCH (11:50)
[2021-04-18] MEDS: ROSUVASTATIN 20 MG TABLET PO SCH (22:19)
[2021-04-18] MEDS: ENOXAPARIN 40 MG/0.4 ML SYRINGE SUBCUT SCH (22:20)
[2021-04-19] MEDS: KETOROLAC 15 MG/1 ML VIAL IV SCH ×2 (03:29→08:59)
[2021-04-19 04:19] LABS: Basophils # 0.1 10*3/uL (0.0-0.2); Basophils % 0.6 % (0.0-0.8); Eosinophils # 0.4 10*3/uL (0.0-0.87); Eosinophils % 4.9 % (0.00-10.9); Hematocrit 37.8 VOL% (42.0-52.0); Hemoglobin 11.9 GM/DL (14.0-18.0); Immature Granulocytes % 0.9 %; Immature Granulocytes Absolute 0.07 #; Lymphocytes # 1.7 10*3/uL (1.4-4.0); Lymphocytes % 21.8 % (21.2-54.2); Mean Corpuscular HGB Conc 31.5 GM/DL (32-36); Mean Corpuscular Volume 99.5 FL (87-102); Mean Platelet Volume 9.8 FL (9.6-12.0); Monocytes % 11.9 % (1.7-12.7); Neutrophils % 59.9 % (38.7-73.9); Platelet Count 298 T/CUMM (130-400); White Blood Count 7.7 T/CUMM (4-12)
[2021-04-19 04:34] LABS: Calcium 9.7 MG/DL (8.5-10.1); Osmolality,Calculated 284.3 MOS/KG (273-304); Potassium 4.3 MMOL/L (3.5-5.1)
[2021-04-19] MEDS: buPROPion XL 150 MG TABLET PO SCH (08:54)
[2021-04-19] MEDS: DOCUSATE SODIUM 100 MG CAPSULE PO SCH ×2 (08:54→21:01)
[2021-04-19] MEDS: INSULIN LISPRO 100 UNIT/ML SUBCUT SCH ×4 (08:54→22:24)
[2021-04-19] MEDS: CLOPIDOGREL 75 MG TABLET PO SCH (08:54)
[2021-04-19] MEDS: GABAPENTIN 100 MG CAPSULE PO SCH ×2 (08:55→21:01)
[2021-04-19] MEDS: carvediloL 3.125 MG TABLET PO SCH ×2 (08:55→21:01)
[2021-04-19] MEDS: ASPIRIN EC 81 MG TABLET PO SCH (08:55)
[2021-04-19] MEDS: SPIRONOLACTONE 25 MG TABLET PO SCH ×2 (08:55→21:01)
[2021-04-19] MEDS: SULFAMETHOX/TRIMETHOPRIM 800-160 MG TABLET PO SCH ×2 (08:55→16:03)
[2021-04-19] MEDS: PANTOPRAZOLE 40 MG TABLET PO SCH (08:55)
[2021-04-19] MEDS: FUROSEMIDE 40 MG TABLET PO SCH ×2 (08:56→22:25)
[2021-04-19] MEDS: ROSUVASTATIN 20 MG TABLET PO SCH (21:01)
[2021-04-19] MEDS: ENOXAPARIN 40 MG/0.4 ML SYRINGE SUBCUT SCH (22:25)
[2021-04-20] MEDS: CLOPIDOGREL 75 MG TABLET PO SCH (08:26)
[2021-04-20] MEDS: DOCUSATE SODIUM 100 MG CAPSULE PO SCH ×2 (08:26→20:54)
[2021-04-20] MEDS: SULFAMETHOX/TRIMETHOPRIM 800-160 MG TABLET PO SCH ×2 (08:26→16:20)
[2021-04-20] MEDS: buPROPion XL 150 MG TABLET PO SCH (08:26)
[2021-04-20] MEDS: PANTOPRAZOLE 40 MG TABLET PO SCH (08:26)
[2021-04-20] MEDS: INSULIN LISPRO 100 UNIT/ML SUBCUT SCH ×4 (08:27→20:29)
[2021-04-20] MEDS: SPIRONOLACTONE 25 MG TABLET PO SCH ×2 (08:27→20:54)
[2021-04-20] MEDS: GABAPENTIN 100 MG CAPSULE PO SCH ×2 (08:27→20:53)
[2021-04-20] MEDS: carvediloL 3.125 MG TABLET PO SCH ×2 (08:27→20:54)
[2021-04-20] MEDS: ASPIRIN EC 81 MG TABLET PO SCH (08:27)
[2021-04-20] MEDS: FUROSEMIDE 40 MG TABLET PO SCH ×2 (08:28→20:29)
[2021-04-20] MEDS: ENOXAPARIN 40 MG/0.4 ML SYRINGE SUBCUT SCH (20:29)
[2021-04-20] MEDS: ROSUVASTATIN 20 MG TABLET PO SCH (20:53)
[2021-04-21 05:47] LABS: Basophils # 0.1 10*3/uL (0.0-0.2); Basophils % 0.8 % (0.0-0.8); Eosinophils # 0.4 10*3/uL (0.0-0.87); Eosinophils % 4.7 % (0.00-10.9); Hematocrit 38.6 VOL% (42.0-52.0); Hemoglobin 11.9 GM/DL (14.0-18.0); Immature Granulocytes % 0.9 %; Immature Granulocytes Absolute 0.07 #; Lymphocytes # 1.7 10*3/uL (1.4-4.0); Lymphocytes % 20.9 % (21.2-54.2); Mean Corpuscular HGB Conc 30.8 GM/DL (32-36); Mean Corpuscular Volume 98.5 FL (87-102); Mean Platelet Volume 9.8 FL (9.6-12.0); Monocytes % 10.3 % (1.7-12.7); Neutrophils % 62.4 % (38.7-73.9); Platelet Count 281 T/CUMM (130-400); Red Blood Count 3.92 MC/CUMM (3.8-5.5); Red Cell Distribution Width 13.6 % (9.3-17.3); White Blood Count 7.9 T/CUMM (4-12)
[2021-04-21 06:14] LABS: Calcium 9.4 MG/DL (8.5-10.1); Osmolality,Calculated 278.7 MOS/KG (273-304); Potassium 3.9 MMOL/L (3.5-5.1)
[2021-04-21] MEDS: INSULIN LISPRO 100 UNIT/ML SUBCUT SCH ×2 (07:44→12:15)
[2021-04-21] MEDS: CLOPIDOGREL 75 MG TABLET PO SCH (09:17)
[2021-04-21] MEDS: DOCUSATE SODIUM 100 MG CAPSULE PO SCH (09:17)
[2021-04-21] MEDS: GABAPENTIN 100 MG CAPSULE PO SCH (09:17)
[2021-04-21] MEDS: PANTOPRAZOLE 40 MG TABLET PO SCH (09:17)
[2021-04-21] MEDS: buPROPion XL 150 MG TABLET PO SCH (09:17)
[2021-04-21] MEDS: carvediloL 3.125 MG TABLET PO SCH (09:17)
[2021-04-21] MEDS: SULFAMETHOX/TRIMETHOPRIM 800-160 MG TABLET PO SCH (09:17)
[2021-04-21] MEDS: ASPIRIN EC 81 MG TABLET PO SCH (09:17)
[2021-04-21] MEDS: SPIRONOLACTONE 25 MG TABLET PO SCH (09:17)
[2021-04-21] MEDS: FUROSEMIDE 40 MG TABLET PO SCH (09:24)
[2021-04-21 12:29] VITALS: BP 98/65
== END 2021-04-21 15:00 | disposition home health service (06) | DRG 863 ==
LOC: N.ED 12:00 → N.EDINP 16:17 → SUATTDRO 16:17 → N.3E 16:45
PROVIDERS: ADMIT Internal Medicine; ATTEND Internal Medicine